=== PATIENT | female | born 1980 | race Two or more races ===

== ENCOUNTER → 2021-04-12 10:27 | Outpatient (BNVA) | payer OTHER, SELFPAY | PROVIDERS: PCP Family Medicine; Referring Provider Family Medicine; Visit Provider Physician Assistant ==

== ENCOUNTER → 2021-05-05 15:30 | Outpatient (BNVA) | payer OTHER, SELFPAY | PROVIDERS: PCP Family Medicine; Visit Provider Physician Assistant Surgical ==

== ENCOUNTER 2021-05-05 16:35 | Outpatient (REF) | payer OTHER, SELFPAY ==
[2021-05-11 15:22] LABS: H Pylori Breath Test Negative (Negative)
== END 2021-05-05 16:36 | disposition home or self-care (01) ==
LOC: HO.LNP 16:35
PROVIDERS: Visit Provider Physician Assistant
DX: Z01.818 Encounter for other preprocedural examination (principal); E66.01 Morbid (severe) obesity due to excess calories; I49.9 Cardiac arrhythmia, unspecified; R40.0 Somnolence
CPT/HCPCS: 83013

== ENCOUNTER → 2021-05-07 07:03 | Outpatient (BNVA) | payer OTHER, SELFPAY | PROVIDERS: PCP Family Medicine; Visit Provider Surgery ==

== ENCOUNTER → 2021-05-21 08:14 | Outpatient (BNVA) | payer OTHER, SELFPAY | PROVIDERS: PCP Family Medicine; Visit Provider Dietitian, Registered | DX: E66.01 Morbid (severe) obesity due to excess calories (principal) | CPT/HCPCS: 97802 ==

== ENCOUNTER 2021-06-08 07:56 | Outpatient (REF) | payer OTHER, SELFPAY ==
--- NOTE | ~2021-06-08 | US_ITS ---
EXAMINATION: US COMPLETE ABDOMEN WITH LIVER ELASTOGRAPHY CLINICAL INFORMATION: Obesity. COMPARISON: None. TECHNIQUE: Real-time imaging of the abdominal viscera. Noninvasive ultrasound liver fibrosis assessment is performed using Alexi ElastPQ point quantification shear wave elastography (2D-SWE) with a C5-2 MHz transducer. Multiple elastography samples are obtained. FINDINGS: PANCREAS: Most of the pancreas obscured by overlying gas. ABDOMINAL AORTA: The proximal, middle, and distal aortic segments are normal in caliber. INFERIOR VENA CAVA: Visualized portions are normal. LIVER: The liver demonstrates normal size, contour and increased echogenicity. No focal lesion or intrahepatic biliary duct dilatation. The right lobe measures 16.7 cm in length. The left lobe measures 12.5 cm in length. Portal flow is hepatopedal. Shear wave liver elastography median stiffness is 1.36 m/s (reference: normal median stiffness is 1.3 m/s or less). IQR/median stiffness to assess sampling precision is 0.07 (reference: good quality data set is IQR/median stiffness of 0.15 or less). GALLBLADDER: Normal. The gallbladder is physiologically distended without evidence of stones, sludge, polyps, wall thickening or pericholecystic fluid. COMMON BILE DUCT: Normal in caliber measuring 0.4 cm in diameter. RIGHT KIDNEY: Normal. No hydronephrosis. No renal calculi or focal parenchymal lesions. The kidney measures 13.2 cm in maximum dimension. LEFT KIDNEY: There is an extrarenal kidney pelvis. No hydronephrosis. No renal calculi or focal parenchymal lesions. The kidney measures 13.4 cm in maximum dimension. SPLEEN: Normal. The spleen measures 9.9 cm in maximum dimension. FREE FLUID: None. US/US abdomen comp w elastography IMPRESSION: 1. Diffuse hepatic steatosis without focal lesion. The rest of the abdominal ultrasound is unremarkable except for an extrarenal left renal pelvis. 2. Liver elastography: Median liver stiffness measures 1.36 cm corresponding to cACLD (ruled out). REFERENCE: Society of Radiologists in Ultrasound Liver Stiffness Thresholds (2019): LIVER STIFFNESS THRESHOLDS: *Liver Stiffness equal or less than 1.3 m/s: High probability of being normal. *Liver Stiffness less than 1.7 m/s: In the absence of other known clinical signs, rules out compensated advanced chronic liver disease. *Liver Stiffness 1.7-2.1 m/s: Suggestive of compensated advanced chronic liver disease but need further test for confirmation. *Liver Stiffness over 2.1 m/s: Rules in compensated advanced chronic liver disease. *Liver Stiffness over 2.4 m/s: Suggestive of clinically significant portal hypertension. QUALITY OF DATA SET: *IQR/Median value equal or less than 0.15 implies a quality data set. *IQR/Median value over 0.15 implies a poor quality data set. SIGNIFICANT CHANGE FROM PRIOR EXAM: Significant change if liver stiffness measurement is 10% or greater from prior exam. OTHER CONSIDERATIONS: The stage of liver fibrosis may be overestimated in the setting of acute hepatitis, liver inflammation, elevated liver function tests, hepatic vascular congestion, obstructive cholestasis, non-fasting state, and infiltrative diseases such as amyloidosis and lymphoma. In some patients with NAFLD, the liver stiffness thresholds for compensated advanced chronic liver disease may be lower. In causes other than viral hepatitis and NAFLD, liver stiffness thresholds are not well established.
--- NOTE | ~2021-06-08 | XR_ITS ---
EXAMINATION: XR CHEST CLINICAL INFORMATION: I49.9 - Cardiac arrhythmia, unspecified COMPARISON: None TECHNIQUE: 2 views of the chest were obtained. FINDINGS: Heart size normal. Vascularity normal. Lungs are clear. No vascular congestion, infiltrate, groundglass opacity, or effusion. The costophrenic sulci are well-defined. The hilar and mediastinal contours and visualized bony structures are unremarkable. XR/XR chest 2V IMPRESSION: Unremarkable examination.
--- NOTE | ~2021-06-08 | FL_ITS ---
EXAMINATION: XR FLUOROSCOPY UPPER GI WITH AIR CLINICAL INFORMATION: Cardiac arrhythmia. COMPARISON: None. TECHNIQUE: Routine upper GI air-contrast study was performed. FINDINGS: Following oral administration of thick barium and effervescent granules, there is normal propagation of bolus from the oral cavity through the pharynx and esophagus abd into the stomach without any evidence of obstruction, narrowing or stricture. On placing patient supine and prone lying, the course, caliber and peristalsis of stomach, duodenal bulb and the sweep are normal. The mucosal pattern of the stomach and the duodenum is normal. FLUOROSCOPY TIME: 1.8 minutes DOSE AREA PRODUCT: 33.079 Gy-cm2 . FL/FL upper GI w air IMPRESSION: Unremarkable upper GI air contrast study.
--- NOTE | 2021-06-08 09:09 | ECG_ITS ---
Test Reason : cardiac arrhythmia Blood Pressure : / mmHG Vent. Rate : 054 BPM Atrial Rate : 054 BPM P-R Int : 194 ms QRS Dur : 090 ms QT Int : 484 ms P-R-T Axes : 042 008 030 degrees QTc Int : 458 ms Sinus bradycardia Nonspecific T wave abnormality Abnormal ECG No previous ECGs available Referred By: Colette Leon Electronically Signed By:RUSTAM GARCIA
--- NOTE | 2021-06-08 09:09 | CA_ITS ---
Transthoracic Echocardiogram Patient (Last, First, Middle): Lizette Green, Gender: Female Date of : 1980 Age: 40 Procedure Date: 06/08/2021 Procedure Type: Transthoracic Echocardiogram Location: OP Height: 170.18 cm Weight: 134.27 kg BSA: 2.39 m2 Heart Rate: bpm BP: 142 / 92 mmHg Associate Dean: ADELINA Referring MD: Colette Leon PA-C Symptoms: I49.9 - Cardiac arrhythmia, unspecified Study Quality: Fair ECG Rhythm: Sinus Conclusions: - The left ventricular systolic function is low normal. The visually estimated ejection fraction is between 50-55%. - There is moderately increased left ventricular wall thickness. - No obvious valvular pathology seen on this study. Findings Left Ventricle Normal left ventricular cavity size. There is moderately increased left ventricular wall thickness. The left ventricular systolic function is low normal. The visually estimated ejection fraction is between 50-55%. There is no evidence of regional wall motion abnormalities. Diastolic function is normal for age. Right Ventricle Normal right ventricular cavity size and systolic function. Atria Both atria are normal in size. Aortic Valve There is a normal trileaflet aortic valve. There is no aortic valve stenosis. There is no aortic valve regurgitation. Mitral Valve The mitral valve appears normal. There is trace mitral valve regurgitation. There is no mitral valve stenosis. Pulmonic Valve The pulmonic valve was not well visualized. Tricuspid Valve Normal tricuspid valve structure. There is trace tricuspid valve regurgitation. The pulmonary artery systolic pressure is normal. Great Vessels The asc aorta and aortic arch are normal in size. Venous The inferior vena cava was not well visualized. Pericardium/Pleural There is no evidence of pericardial effusion. Prior Study Comparison No prior study available for comparison. Recommendations, Care & Conclusions No obvious valvular pathology seen on this study. Measurements M-Mode Liner Measurements Normals - Women/Men IVSd: 1.75 0.6-0.9/0.6-1.0 cm LVIDd: 5.30 3.9-5.3/4.2-5.9 cm LVIDd Index: 2.22 1.9-3.2 cm/m2 LVPWd: 1.34 0.6-0.9/0.6-1.0 cm LV Mass: 459.38 67-162/88-224g LV Mass Index: 192.21 43-95/49-115 g/m2 M-Mode Volumes LV EDV: 135.00 2D Linear Measurements IVSd: 1.29 0.6-0.9/0.6-1.0 cm LVIDd: 5.48 3.9-5.3/4.2-5.9 cm LVIDd Index: 2.29 2.4-3.2/2.2-3.1 cm/m2 LVIDs: 3.70 2.0-3.6 cm LVPWd: 1.17 0.7-1.1 cm Ao Root: 2.90 2.1-3.5 cm LA Diam: 4.00 2.7-3.8/3.0-4.0 cm LAIDs Index: 1.67 1.5-2.3 cm/m2 LV Mass: 349.44 67-162/88-224 g LV Mass Index: 146.21 43-95/49-115 g/m2 LVOT Diam: 2.00 3.0+(-)1.3 cm 2D Systolic Function EF 4C: 55.60 >55% EF 2C: 45.10 >55% EF BiP: 50.20 >55% Mitral Valve MV Pk E: 0.67 MV PK A: 0.66 MV Decel Time: 273.00 E/A: 1.00 E'Lateral: 7.07 E'Medial: 6.31 E/E' Med: 10.60 E/E' Lat: 9.40 PHT: 80.00 MVA PHT: 2.75 Decel [place]: 2.45 Aortic Valve AoV Pk Scott: 1.44 AoV Pk Grad: 8.00 LVOT LVOT Pk Scott: 0.98 LVOT Mn Scott: 0.63 LVOT VTI: 0.24 LVOT Pk Grad: 4.00 LVOT Mn Grad: 2.00 LVOT Diam: 2.00 LVOT Area: 3.14 Diastolic Function MV Pk E: 0.67 MV Pk A: 0.66 E/A: 1.00 E'Medial: 6.31 E/E' Med: 10.60 E' Laterial: 7.07 E/E' Lat: 9.40 Right Ventricle TAPSE (mm): 2.34 TVS' Scott: 12.90 Tricuspid Valve TR Pk Scott: 2.76 TR Pk Grad: 30.00 RA Press: 3.00 RVSP: 33.00 Great Vessels Aorta Ao Root-2D: 2.90 2.0-3.7 cm Ao Asc: 3.50 2.1-3.4 cm Updated in Other Vendor System with Status of Final Harshad Ruano MD electronically signed on 06/08/2021 11:22:03 AM with status of Final
[2021-06-08 10:49] LABS: MANUAL DIFF FLAG NO
[2021-06-08 11:23] LABS: Basophils Percent Auto 0.9 % (0-2); Eosinophils Absolute Auto 0.2 X10*3/uL (0.0-0.4); Eosinophils Percent Auto 5.2 % (0-4); Hematocrit 43.3 % (37.0-47.0); Hemoglobin 13.7 g/dl (12.0-16.0); Lymphocytes Absolute Auto 2.5 X10*3/uL (1.2-4.9); Lymphocytes Percent Auto 54.1 % (20-40); Mean Corpuscular HGB Conc 31.6 g/dl (31.0-35.0); Mean Corpuscular Hemoglobin 26.7 pg (27.0-33.0); Mean Corpuscular Volume 84.4 fL (80.0-98.0); Mean Platelet Volume 11.9 fL (9.4-12.3); Monocytes Absolute Auto 0.3 X10*3/uL (0.1-1.2); Monocytes Percent Auto 6.1 % (2-11); Neutrophils Absolute Auto 1.6 x10*3/uL (2.0-8.3); Neutrophils Percent Auto 33.7 % (45-73); Platelet Count 220 X10*3/uL (160-400); Red Blood Count 5.13 X10*6/uL (4.20-5.50); Red Cell Distribution Width 13.3 % (11.0-16.0); White Blood Count 4.6 X10*3/uL (4.8-10.8)
[2021-06-08 11:32] LABS: Estimated Average Glucose 126 mg/dL; Hemoglobin A1C 149.9644 umol/L
[2021-06-08 12:38] LABS: Ferritin 183 ng/mL (10-250); TSH reflex Free T4 0.93 uIU/mL (0.32-4.0); Vitamin D 25-OH Total 23.9 ng/mL (>30)
[2021-06-08 12:41] LABS: Folate 6.9 ng/mL (> or = 4.0); Vitamin B12 927 pg/mL (200-900)
[2021-06-08 12:50] LABS: Alanine Aminotransferase 42 U/L (0-31); Albumin Level 4.1 g/dL (3.5-5.0); Alkaline Phosphatase 72 U/L (39-117); Anion Gap 15 (12-20); Aspartate Amino Transferase 25 U/L (5-31); Bilirubin Total 0.5 mg/dL (0.0-1.0); Blood Urea Nitrogen 15 mg/dL (9-16); C Reactive Protein 0.43 mg/dL (< or = 0.50); Calcium 9.4 mg/dL (8.4-10.2); Carbon Dioxide 26 mmol/L (22-29); Chloride 104 mmol/L (96-108); Cholesterol 211 mg/dL; Estimated Glomerular Filt Rate > 60; Glucose Random 89 mg/dL (60-115); HDL Cholesterol 35 mg/dL; Iron 67 mcg/dL (30-160); LDL Cholesterol Calculated 156 mg/dl; Percent Iron Saturation 21 % (15-50); Potassium 3.8 mmol/L (3.3-5.1); Sodium 141 mmol/L (135-145); Total Iron Binding Capacity 326 mcg/dL (228-428); Total Protein 7.4 g/dL (6.5-8.0); Triglycerides 103 mg/dL; Unsaturated Iron Binding 259 ug/dL
[2021-06-08 14:28] LABS: Insulin 19 uU/mL (2-29)
[2021-06-09 13:01] LABS: Calcium (PTHI) 9.3 mg/dL (8.6-10.2); PTHI 45 pg/mL (14-64)
[2021-06-11 06:27] LABS: Zinc 102 mcg/dL (60-130)
[2021-06-11 13:00] LABS: Vitamin B1 9 nmol/L (8-30)
[2021-06-12 15:57] LABS: Vitamin A 37 mcg/dL (38-98)
== END 2021-06-08 07:57 | disposition home or self-care (01) ==
LOC: HO.US 07:56
PROVIDERS: Visit Provider Physician Assistant
DX: Z01.818 Encounter for other preprocedural examination (principal); I49.9 Cardiac arrhythmia, unspecified; R40.0 Somnolence; E66.01 Morbid (severe) obesity due to excess calories
CPT/HCPCS: 36415; 71046; 74246; 76705; 76981; 80053; 80061; 82306; 82607; 82728; 82746; 83036; 83525; 83540; 83970; 84425; 84443; 84590; 84630; 85025; 86140; 93005; 93306; 97803

== ENCOUNTER → 2021-07-21 08:01 | Outpatient (REF) | payer MEDICAID, SELFPAY ==
--- NOTE | 2021-07-21 08:03 | CA_ITS ---
Acquisition Time: 2021-07-21 08:15:58 Total Exercise Time: 00:05:50 Test Indications: ABN EKG, PREOP Medications: SEE CHART Protocol: JANETT Max HR: 129 BPM 71% of Pred: 180 BPM Max BP: 164/090 mmHG Max Work Load: 7.0 METS Exercise stress test with exercise 5 min 50 sec of Janett protocol, achieving 70% MPHR, 7 METS, with moderate shortness of breath and request to stop, no chest discomfort, without arrythmia, with normotensive response to exercise, with nondiagnostic EKG for ischemia due to suboptimal heart rate. In recovery her breathing quickly improved. Test reviewed with Dr Heard. Msg sent to Dr Birmingham with report and recommendation for pharm nuclear stress test. Referred By: Kelton Huddleston Overread By: SHAQUILLE GILLESPIE
== END ==
LOC: HO.CARD 08:01
PROVIDERS: Visit Provider Surgery
DX: I51.7 Cardiomegaly (principal); R94.31 Abnormal electrocardiogram [ECG] [EKG]
CPT/HCPCS: 93017

== ENCOUNTER → 2021-08-06 08:16 | Outpatient (BNVA) | payer OTHER, SELFPAY | PROVIDERS: PCP Family Medicine; Visit Provider Surgery | DX: Z13.89 Encounter for screening for other disorder (principal) ==

== ENCOUNTER → 2021-09-07 15:43 | Outpatient (BNVA) | payer OTHER, SELFPAY | PROVIDERS: PCP Family Medicine; Visit Provider Surgery | DX: Z13.89 Encounter for screening for other disorder (principal) ==

== ENCOUNTER → 2021-09-10 09:55 | Outpatient (REF) | payer OTHER, SELFPAY ==
--- NOTE | ~2021-09-10 | NM_ITS ---
Lexiscan Myocardial perfusion study Indication: Preoperative cardiac evaluation, assess for coronary disease and ischemia Technique: The patient was brought in for a Lexiscan perfusion study on 09/10/2021 and was injected 0.4 mg of Lexiscan intravenously. Within a minute of this injection 40 mCi of sestamibi was given intravenously. Images were obtained using the SPECT gamma camera interlaced with the gating device. Images were obtained in supine position. Resting perfusion study was performed on 09/14/2021. Patient was administered 40 mCi of sestamibi intravenously at rest. Images were then obtained in supine position. Total DLP 158mGy-cm. Images were processed with the software and compared side to side in short axis, horizontal long axis and vertical long axis views. Findings: Raw acquisition was reviewed. The stress perfusion study showed mildly diminished tracer uptake in the basal part of inferolateral wall; distal part of anterior septum. With CT attenuation correction, basal inferolateral wall perfusion improved. Distal anteroseptal wall still with some perfusion defect. The gated study shows low normal LV systolic function with calculated LVEF of 53%. LV cavity is normal in size. The gated study shows normal wall thickening and contraction of segments. Resting study shows no significant perfusion abnormality. With CT attenuation correction, there is diminished tracer uptake in the distal anteroseptal wall. Gating at rest reveals normal wall motion with ejection fraction at 52%. The findings are consistent with no definitive reversible or fixed perfusion defects to suggest ischemia or infarction. NM/NM lucas perf SPECT rest & str Impression: 1. Myocardial perfusion imaging study shows no definitive evidence of any ischemia or infarction. Likely normal myocardial perfusion. 2. Gated LVEF is 53% during stress and 52% during rest. 3. Transient ischemic dilatation not present. EKG component of the test reported separately.
--- NOTE | 2021-09-10 09:59 | CA_ITS ---
Acquisition Time: 2021-09-10 10:18:56 Total Exercise Time: 00:02:00 Test Indications: ABN EKG Medications: SEE CHART Protocol: LEXISCAN Max HR: 101 BPM 56% of Pred: 180 BPM Max BP: 152/092 mmHG Max Work Load: 1.6 METS Pharmacological stress test with Lexiscan injection, while walking slow on treadmill without anginal symptoms, without arrythmia, with normotensive response to injection, with nondiagnostic EKG for ischemia. Nuclear images pending. Test reviewed with Dr Tellez Referred By: Kelton Huddleston Overread By: SHAQUILLE GILLESPIE
== END ==
LOC: HO.CARD 09:55
PROVIDERS: Visit Provider Surgery
DX: R94.31 Abnormal electrocardiogram [ECG] [EKG] (principal); I51.7 Cardiomegaly; R94.39 Abnormal result of other cardiovascular function study
CPT/HCPCS: 78452; 93017; A9500; J0280; J2785

== ENCOUNTER 2021-09-15 06:08 | Inpatient (IN) | payer OTHER, SELFPAY ==
[2021-09-08 11:54] VITALS: BMI 44.6
[2021-09-11 11:01] LABS: MANUAL DIFF FLAG NO
[2021-09-11 11:15] LABS: Basophils Percent Auto 0.5 % (0-2); Eosinophils Absolute Auto 0.3 X10*3/uL (0.0-0.4); Eosinophils Percent Auto 4.8 % (0-4); Hematocrit 41.1 % (37.0-47.0); Hemoglobin 13.1 g/dl (12.0-16.0); Imm Gran Abs Auto 0.01 X10*3/uL (0.00-0.03); Imm Gran Pct Auto 0.2 % (0.0-0.4); Lymphocytes Absolute Auto 3.1 X10*3/uL (1.2-4.9); Lymphocytes Percent Auto 50.8 % (20-40); Mean Corpuscular HGB Conc 31.9 g/dl (31.0-35.0); Mean Corpuscular Hemoglobin 26.4 pg (27.0-33.0); Mean Corpuscular Volume 82.9 fL (80.0-98.0); Mean Platelet Volume 10.7 fL (9.4-12.3); Monocytes Absolute Auto 0.3 X10*3/uL (0.1-1.2); Monocytes Percent Auto 5.3 % (2-11); Neutrophils Absolute Auto 2.3 x10*3/uL (2.0-8.3); Neutrophils Percent Auto 38.4 % (45-73); Platelet Count 279 X10*3/uL (160-400); Red Blood Count 4.96 X10*6/uL (4.20-5.50); Red Cell Distribution Width 13.5 % (11.0-16.0)
[2021-09-11 11:19] LABS: INTERNATIONAL NORM RATIO 1.1 (0.9-1.1); Prothrombin Time 12.7 SEC (9.9-13.0)
[2021-09-11 11:21] LABS: Partial Thromboplastin Time 36.6 SEC (24.1-38.0)
[2021-09-11 11:24] LABS: Estimated Average Glucose 114 mg/dL; Hemoglobin A1c % 5.6 %
[2021-09-11 11:41] LABS: Alanine Aminotransferase 28 U/L (0-31); Alkaline Phosphatase 76 U/L (39-117); Anion Gap 12 (12-20); Aspartate Amino Transferase 18 U/L (5-31); Bilirubin Total 0.6 mg/dL (0.0-1.0); Blood Urea Nitrogen 13 mg/dL (9-16); C Reactive Protein 0.87 mg/dL (< or = 0.50); Calcium 9.7 mg/dL (8.4-10.2); Carbon Dioxide 29 mmol/L (22-29); Chloride 107 mmol/L (96-108); Cholesterol 216 mg/dL; Creatinine Clr Calc Pharmacy 130.9; Estimated Glomerular Filt Rate > 60; Glucose Random 97 mg/dL (60-115); HDL Cholesterol 31 mg/dL; LDL Cholesterol Calculated 172 mg/dl; Potassium 3.9 mmol/L (3.3-5.1); Sodium 144 mmol/L (135-145); Total Protein 7.3 g/dL (6.5-8.0); Triglycerides 68 mg/dL
[2021-09-11 12:04] LABS: Insulin 14 uU/mL (2-29); TSH reflex Free T4 0.78 uIU/mL (0.32-4.0)
--- NOTE | 2021-09-11 23:22 | MHC.SHP ---
Pre-Procedural Eval Section A Date of Service: 09/11/21 The patient is an INPATIENT: Yes The History & Physical has been completed within 30 days and I have reviewed it.: Yes Section B Chief Complaint: obesity Relevant Family History (Specify if Yes): No Relevant Social History: None Present Medications: None History of Previous Operations: No relevant previous surgery Allergies: Allergies Allergy/AdvReac Type Severity Reaction Status Date / Time No Known Allergies Allergy Verified 09/08/21 11:54 Review of Systems Sugical H&P ROS: Negative: Constitution, Cardiovascular, Respiratory, Neurological, Psychiatric, Hem-Onc, Allergic/Immunologic, Gastrointestinal, Genitourinary, Musculoskeletal, Integumentary, Endocrine and Eyes/Ears/Nose/Throat Exam Surgical H&P Exam: Normal: HEENT, Normal: Heart, Normal: Lungs, Normal: Extremities, Normal: Abdomen, Normal: Skin and Normal: Neurological Plan Diagnosis/Plan: Unchanged I have reviewed the history and physical and performed a pertinent physical examination on my patient. No changes have occurred unless specified.
--- NOTE | 2021-09-14 08:58 | P.CONAN_ITS ---
Documented by User: India Velasquez NP 09/14/21 15:48 HPI - Anesthesia Eval Consult details Narrative: 40yo F for Gastrectomy Sleeve,EGD,poss diaphragmatic hernia,poss ventral hernia,poss open, PMFSH Active Problems Active Problems: All Active Problems (Updated 09/08/21 @ 11:52 by Chhaya Wise, RN) Morbid obesity (Acute) Irregular heart beat (Acute) Daytime somnolence (Acute) Pre-op evaluation (Acute) Binge-eating disorder, in partial remission, moderate (Acute) Abnormal EKG (Acute) LVH (left ventricular hypertrophy) (Acute) Equivocal stress test (Acute) Vitamin D deficiency (Acute) Vitamin A deficiency (Acute) Back pain (Acute) Past Medical History Medical History (Updated 09/08/21 @ 11:52 by Chhaya Wise RN) Back pain History of epidural anesthesia Migraines ANDREA (obstructive sleep apnea) Seasonal allergies Family History Family History Mother Anemia Father No problems noted. Daughter Asthma Daughter No problems noted. Surgical History Surgical History History of wisdom tooth extraction Social History Social History Are you a primary client care consultant to a significant other at home: No Do you presently have visiting nurse or other home services: No Alcohol intake: current Alcohol intake frequency: does not drink Patient Tobacco Use Status: Former Tobacco user Quit Date: 2007 Tobacco use type: Cigarette Years Smoked: last 2007 Use of substances other than those prescribed or required for medical reasons: No Have you been hit, kicked, punched, or otherwise hurt by someone within the past year? If so, by whom?: No Are you DNR?: No Advance Directives: No Advance Directives Information Provided: Yes Advance Directives on File: No Recently lost weight without trying: No Patient : No FDLMP: 08/2020 : No Poor oral hygiene: No Meds Allergies Allergy/AdvReac Type Severity Reaction Status Date / Time avocado Allergy Vomiting Verified 09/15/21 06:28 pineapple Allergy Itching Verified 09/15/21 06:28 Home Medications Medication Instructions Recorded Confirmed Last Taken Type ascorbate calcium (vitamin C) 500 500 mg PO DAILY 04/12/21 09/08/21 Unknown History mg tablet ibuprofen 200 mg tablet (Motrin IB) 200 mg PO Q6H PRN 04/12/21 09/08/21 Unknown History Exam Exam Date and Time: September 14, 2021 0858 Height,Weight and Vital Signs: Height 5 ft 6.5 in Weight 127.278 kg Pertinent Lab Results Pertinent Lab Results: Laboratory Tests 09/11/21 09/11/21 09/11/21 10:56 10:58 10:58 WBC 6.0 RBC 4.96 Hgb 13.1 Hct 41.1 MCV 82.9 MCH 26.4 L MCHC 31.9 RDW 13.5 Plt Count 279 D MPV 10.7 Immature Gran % (Auto) 0.2 Neut % (Auto) 38.4 L Lymph % (Auto) 50.8 H [place] % (Auto) 5.3 Eos % (Auto) 4.8 H Baso % (Auto) 0.5 Lymph # (Auto) 3.1 [place] # (Auto) 0.3 Eos # (Auto) 0.3 Baso # (Auto) 0.0 Abs Immat Gran (auto) 0.01 Absolute Neuts (auto) 2.3 Absolute Nucleated RBC 0.000 Nucleated RBC % (auto) 0.0 PT 12.7 INR 1.1 APTT 36.6 Sodium Potassium Chloride Carbon Dioxide Anion Gap BUN Creatinine Estim Creat Clear Calc Estimated GFR Random Glucose Estimat Average Glucose Hemoglobin A1c % Insulin Level Calcium Total Bilirubin AST ALT Alkaline Phosphatase C-Reactive Protein Total Protein Albumin Triglycerides Cholesterol LDL Cholesterol, Calc HDL Cholesterol TSH Blood Type O Positive Antibody Screen NEGATIVE 09/11/21 09/11/21 10:58 10:58 WBC RBC Hgb Hct MCV MCH MCHC RDW Plt Count MPV Immature Gran % (Auto) Neut % (Auto) Lymph % (Auto) [place] % (Auto) Eos % (Auto) Baso % (Auto) Lymph # (Auto) [place] # (Auto) Eos # (Auto) Baso # (Auto) Abs Immat Gran (auto) Absolute Neuts (auto) Absolute Nucleated RBC Nucleated RBC % (auto) PT INR APTT Sodium 144 Potassium 3.9 Chloride 107 Carbon Dioxide 29 Anion Gap 12 BUN 13 Creatinine 0.78 Estim Creat Clear Calc 130.9 Estimated GFR > 60 Random Glucose 97 Estimat Average Glucose 114 Hemoglobin A1c % 5.6 Insulin Level 14 Calcium 9.7 Total Bilirubin 0.6 AST 18 ALT 28 Alkaline Phosphatase 76 C-Reactive Protein 0.87 H Total Protein 7.3 Albumin 4.0 Triglycerides 68 Cholesterol 216 LDL Cholesterol, Calc 172 HDL Cholesterol 31 TSH 0.78 Blood Type Antibody Screen Narrative Narrative: EKG 05/2021 Vent. Rate : 054 BPM ? ? Atrial Rate : 054 BPM ?? P-R Int : 194 ms? QRS Dur : 090 ms ? ? QT Int : 484 ms ? ? ? P-R-T Axes : 042 008 030 degrees ?? QTc Int : 458 ms ? Sinus bradycardia Nonspecific T wave abnormality Abnormal ECG No previous ECGs available ECHO 05/2021 Conclusions: - The left ventricular systolic function is low normal.? The ? ? visually estimated ejection fraction is between 50-55%.? - There is moderately increased left ventricular wall thickness. - No obvious valvular pathology seen on this study.? ?? NM lucas perf SPECT rest & str 08/2021 Impression: ? 1.? Myocardial perfusion imaging study shows no definitive evidence of any ischemia or infarction. Likely normal myocardial perfusion. 2.? Gated LVEF is 53% during stress and 52% during rest. 3. Transient ischemic dilatation not present. ? EKG component of the test reported separately. (nondiagnostic) Assessment and Plan Assessment Anesthesia Assessment: Chart Reviewed Documented by User: Josefina Payan MD 09/15/21 07:46 [facility] Past Medical History Medical History (Updated 09/08/21 @ 11:52 by Chhaya Wise RN) Back pain History of epidural anesthesia Migraines ANDREA (obstructive sleep apnea) Seasonal allergies Family History Family History Mother Anemia Father No problems noted. Daughter Asthma Daughter No problems noted. Family history of problems with anesthesia: No Surgical History Surgical History History of wisdom tooth extraction History of Problems with Anesthesia: No Social History Social History Are you a primary client care consultant to a significant other at home: No Do you presently have visiting nurse or other home services: No Alcohol intake: current Alcohol intake frequency: does not drink Patient Tobacco Use Status: Former Tobacco user Quit Date: 2007 Tobacco use type: Cigarette Years Smoked: last 2007 Use of substances other than those prescribed or required for medical reasons: No Have you been hit, kicked, punched, or otherwise hurt by someone within the past year? If so, by whom?: No Are you DNR?: No Advance Directives: No Advance Directives Information Provided: Yes Advance Directives on File: No Recently lost weight without trying: No Patient : No FDLMP: 08/2020 : No Poor oral hygiene: No Meds Allergies Allergy/AdvReac Type Severity Reaction Status Date / Time avocado Allergy Vomiting Verified 09/15/21 06:28 pineapple Allergy Itching Verified 09/15/21 06:28 Home Medications Medication Instructions Recorded Confirmed Last Taken Type ascorbate calcium (vitamin C) 500 500 mg PO DAILY 04/12/21 09/08/21 Unknown History mg tablet ibuprofen 200 mg tablet (Motrin IB) 200 mg PO Q6H PRN 04/12/21 09/08/21 Unknown History Exam Height,Weight and Vital Signs: Height 5 ft 6.5 in Weight 127.278 kg Vital Signs Temp Pulse Resp BP Pulse Ox 09/15/21 06:28 97.0 F 63 16 127/65 97 Pertinent Lab Results Pertinent Lab Results: Laboratory Tests 09/11/21 09/11/21 09/11/21 10:56 10:58 10:58 WBC 6.0 RBC 4.96 Hgb 13.1 Hct 41.1 MCV 82.9 MCH 26.4 L MCHC 31.9 RDW 13.5 Plt Count 279 D MPV 10.7 Immature Gran % (Auto) 0.2 Neut % (Auto) 38.4 L Lymph % (Auto) 50.8 H [place] % (Auto) 5.3 Eos % (Auto) 4.8 H Baso % (Auto) 0.5 Lymph # (Auto) 3.1 [place] # (Auto) 0.3 Eos # (Auto) 0.3 Baso # (Auto) 0.0 Abs Immat Gran (auto) 0.01 Absolute Neuts (auto) 2.3 Absolute Nucleated RBC 0.000 Nucleated RBC % (auto) 0.0 PT 12.7 INR 1.1 APTT 36.6 Sodium Potassium Chloride Carbon Dioxide Anion Gap BUN Creatinine Estim Creat Clear Calc Estimated GFR Random Glucose Estimat Average Glucose Hemoglobin A1c % Insulin Level Calcium Total Bilirubin AST ALT Alkaline Phosphatase C-Reactive Protein Total Protein Albumin Triglycerides Cholesterol LDL Cholesterol, Calc HDL Cholesterol TSH Blood Type O Positive Antibody Screen NEGATIVE 09/11/21 09/11/21 10:58 10:58 WBC RBC Hgb Hct MCV MCH MCHC RDW Plt Count MPV Immature Gran % (Auto) Neut % (Auto) Lymph % (Auto) [place] % (Auto) Eos % (Auto) Baso % (Auto) Lymph # (Auto) [place] # (Auto) Eos # (Auto) Baso # (Auto) Abs Immat Gran (auto) Absolute Neuts (auto) Absolute Nucleated RBC Nucleated RBC % (auto) PT INR APTT Sodium 144 Potassium 3.9 Chloride 107 Carbon Dioxide 29 Anion Gap 12 BUN 13 Creatinine 0.78 Estim Creat Clear Calc 130.9 Estimated GFR > 60 Random Glucose 97 Estimat Average Glucose 114 Hemoglobin A1c % 5.6 Insulin Level 14 Calcium 9.7 Total Bilirubin 0.6 AST 18 ALT 28 Alkaline Phosphatase 76 C-Reactive Protein 0.87 H Total Protein 7.3 Albumin 4.0 Triglycerides 68 Cholesterol 216 LDL Cholesterol, Calc 172 HDL Cholesterol 31 TSH 0.78 Blood Type Antibody Screen Laboratory Results - last 24 hr 09/14/21 09/15/21 14:35 06:15 Urine Test NEGATIVE COVID-19 ([place]) Negative COVID-19 Clin Com See Note Airway Mallampati Class: III TM Dist: >3cm Neck ROM: Full Loose/Missing/Broken Teeth: Yes ([place] teeth) Heart: RRR ? extra beats Lungs: CTAB Assessment and Plan Assessment Anesthesia Assessment: Anesthesia Plan Discussed Final Anesthetic Review Family History of Problems with Anesthesia: No History of Problems with Anesthesia: No NPO: Yes ASA Class: III Final Preanesthetic Review: No Changes in Pt Med Stat, Meds/Allgs Chart Reviewed, Consent Obtained/Reviewed and Anes Risks/Benef Reviewed Patient Risk: Intermediate Procedure Risk: Intermediate Assessment/Block/Sedation in SS: Assess/Block/Sedation-SS Anesthetic Plan Anesthetic Plan: GA Disposition: Standard PACU and Inp. Admit - Standard Bed
[2021-09-14 15:07] LABS: COVID-19 Test Negative (Negative)
[2021-09-15] VITALS (14 sets, daily range): BP systolic 121–156; BP diastolic 65–98; PULSE 63–89; RESP 16–22; TEMP 36.1–36.9; O2SAT 96–100
[2021-09-15 06:35] LABS: UPreg QC Valid YES; Urine Pregnancy NEGATIVE (NEGATIVE)
[2021-09-15] MEDS: Lactated Ringers 1,000 ML 999 ML IV (06:42)
[2021-09-15] MEDS: Lactated Ringers 1,000 ML 100 ML IVCONT (06:52)
--- NOTE | 2021-09-15 06:52 | PHA.MEDREC ---
Pharmacy Consult ? Medication Reconciliation Pharmacy has reviewed the medication reconciliation completed by nursing. Dede Gibson, JessicaD
[2021-09-15] MEDS: ceFAZolin Sodium/Dextrose,Iso 2 GM/50 ML PIGGYBACK IV ×2 (07:58→13:38)
--- NOTE | 2021-09-15 10:56 | P.DS_ITS ---
DS: Providers Provider Date of Service: 09/16/21 Date of admission: 09/15/21 06:08 Primary care physician: Unknown Physician DS: Summary Hospital Course Hospital Course: ADMITTING DIAGNOSIS: morbid obesity, Left ventricular hypertrophy DISCHARGE DIAGNOSIS: same, s/p laparoscopic sleeve gastrectomy PAST SURGICAL HISTORY: none PROCEDURE: upper endoscopy, laparoscopic sleeve gastrectomy DISCHARGE SUMMARY: History of Present Illness: The patient is a 40 year-old woman with a BMI of 47.5 kg/m2 and associated co- morbidities as described above. The patient had extensive work-up,lost 31 lbs preoperatively and was electively scheduled for laparoscopic, possible open sleeve gastrectomy and gastropexy. Risks and complications of the surgery were discussed with the patient in advance, particularly the possibility of , pulmonary embolism, anastomotic leak, bleeding, bowel injury, GERD, cardiac, renal or pulmonary complications. The patient understood all the risks and was in agreement with the surgical plan. Hospital Course: The patient underwent an uneventful laparoscopic sleeve gastrectomy with gastropexy on the day of admission. Postoperatively, the patient was transferred to the surgical floor. The patient received IV Acetaminophen and IV dilaudid for pain control. Patient was started on bariatric phase 1 diet POD #0. On postoperative day one, the patient was feeling well without nausea, vomiting, fevers, or tachycardia. The patient had some mild incisional pain and the abdomen was soft. On the morning of postoperative day one, the patient was continued on 1 ounce of water or ice every half hour. During the day, the patient did fairly well, having some incisional pain, but able to ambulate adequately and to tolerate liquids well. Since the patient is doing well, we decided that the patient was ready to be discharged. The patient was given instructions to follow-up with me next week and to call my office for any fever over 101, persistent abdominal pain, nausea, vomiting, GERD, symptoms of DVT such as calf tenderness, or leg swelling, or pulmonary embolism such as chest pain or shortness of breath. The patient was also instructed to drink 40-60 ounces of liquids per day using the 1-ounce cups. The patient had been given prescriptions for Tylenol for pain, Zofran prn for nausea, and pantoprazole and carafate previously. The patient was encouraged to ambulate and use the incentive spirometer. The patient was allowed to shower, but no baths, and encouraged to stay active at home. All of these instructions were given to the patient personally. All questions were answered and the patient understood all instructions, the instructions were also given to the patient in print. Time Spent with Patient Time attestation: Total time spent providing and/or coordinating discharge services: Discharge coordination time: Less than 30 minutes Quality: Safe Use of Opioids Does Pt have an Active Cancer Diagnosis on the Problem List?: No Quality: Stroke Does the patient have a stroke diagnosis?: No Physical Exam Vital Signs: Vital Signs: Last Vital Signs Temp 97.0 F 09/15/21 06:28 Pulse 63 09/15/21 06:28 Resp 16 09/15/21 06:28 BP 127/65 09/15/21 06:28 Pulse Ox 97 09/15/21 06:28 BMI result Body Mass Index 44.6 DS: Data Data Completed and Pending Pending studies at discharge: Pending at discharge 09/15/21 10:02 Surgical [PTH] Routine Labs on day of discharge: Laboratory Results - last 24 hr 09/14/21 09/15/21 14:35 06:15 Urine Test NEGATIVE COVID-19 ([place]) Negative COVID-19 Clin Com See Note Discharge Plan Discharge Anticipated Discharge Date/Time: 09/16/21 10:54 Patient Disposition: Home, Self-Care Discharge Diagnosis: s/p sleeve gastrectomy Referrals: Physician,Unknown J [Primary Care Provider] - 1 Week Discharge Medications: Continued pantoprazole 40 mg tablet,delayed release (DR/EC) 40 mg PO DAILY Qty: 30 2RF sucralfate 100 mg/mL suspension 10 ml PO BID Qty: 400 2RF ondansetron HCl 4 mg tablet 4 mg PO Q12H Qty: 20 0RF Discontinued vitamin A palmitate 10,000 unit tablet 20,000 unit PO DAILY Qty: 30 0RF polyethylene glycol 3350 [Miralax] 17 gram powder in packet 17 g PO DAILY Qty: 14 0RF Rx Instructions: Mix each packet with 8oz of water and do 7 packets on 09/12/21 and another 7 packets on 09/13/21 ascorbate calcium (vitamin C) 500 mg tablet 500 mg PO DAILY 0RF ibuprofen [Motrin IB] 200 mg tablet 200 mg PO Q6H PRN (Reason: Pain) 0RF cholecalciferol (vitamin D3) 125 mcg (5,000 unit) capsule 125 mcg PO DAILY Qty: 30 2RF Discharge Orders: Discharge Order (Routine); Ordered 09/16/21 Ordered By: Kelton Huddleston Activity on Discharge: As tolerated Stand Alone Forms: Patient Portal Discharge page Care Plan Goals: weight loss Health Concerns: morbid obesity Plan of Treatment: No tub baths, sex or returning to work until discussed at first post op appointment. No exercise, alcohol, tobacco or illegal drug use. Continue to use incentive spirometer hourly while awake. Walk in home for 5- 10 minutes every 2 hours during the first week. Continue phase 1 diet today and start phase 2 diet tomorrow morning. Follow all instructions in the bariatric handbook and call with any questions. 1. Please call your doctor or come back to the emergency room should any new symptoms arise. 2. You will receive a courtesy call from [facility] 24-48 hours after discharge. 3. Activity: abstain from alcohol, practice limited stair climbing, no bending, no driving, no exercise, no illicit substances, no lifting, no sex, no tub bath, no work. 4. Diet: continue as discussed with Dr. Huddleston. 5. Dressing Change/Wound Care: Do not change or remove surgical dressings unless they are wet or soiled. 6. Call your doctor if: - Your temperature exceeds 101.5 F - You experience excessive pain or swelling - You have an unexpected reaction to medication - You have excessive bleeding - You experience continued vomiting/nausea - Your incision begins to separate - Your incision shows signs of infection such as increased redness, swelling, excessive pain, heat, or drainage (light blood or clear fluid is normal) 7. General instructions: No lifting greater than 5 lbs for the next 4 weeks[address] driving within 24 hours of taking narcotic pain medications. If you do not move your bowels in the next 2 days, please take milk of magnesia over the counter. Please follow the post op diet and do not advance your diet until you are seen in the office in about 2 weeks. Please walk around your home every hour or two to prevent blood clots from forming in your legs. You do not need to wake from sleeping to walk. Please sleep in a bed or couch to prevent kinking at the hips and knees. Please take your incentive spirometer (your lung civil division commander deputy sheriff) home with you and use it for the next few days to prevent pneumonias. You may shower, no hot tubs, baths or swimming pools. Please call the office with any questions or concerns such as increasing abdominal pain, fever, chills, shortness of breath, chest pain, leg pain or swelling, or redness or drainage from your incisions. Do not hesitate to contact the office with any questions at . The patient's medical history has been reviewed and they are considered low risk for post op DVT and therefore DVT prophylaxis is not considered necessary. Keshia sahni after surgery was reviewed. The patient has not disclosed any travel plans during the first 30 days after surgery and they have been advised that within the first 30 days after surgery any bus, plane, train or car travel over 2 hours in duration is contraindicated due to the possibility of developing blood clots from immobility. Any travel, needs to include periods of ambulation of 10 minutes in duration every 2 hours. The patient was instructed to discuss any plans for travel during this period with their bariatric surgeon. Assessment: stable post op sleeve gastrectomy
--- NOTE | 2021-09-15 11:10 | PM.OP ---
Brief Operative Note Date of Service: 09/15/21 Pre-op diagnosis: Morbid obesity with comorbidities (see below) Post-op diagnosis: same Procedure: INITIAL PATIENT BMI ON PRESENTATION AT OUR OFFICE: 47.5 kg/m2 LAST BMI BEFORE SURGERY: 43.6 kg/m2 COMORBIDITIES: headaches, back/knee pain, liver steatosis, LVH ?The patient presented to the Weight Management Program with significant obesity that was negatively impacting the patient's comorbidities as listed above.? The program is a phased program with a special focus on preoperative medical weight management to promote substantial weight loss and prepare the patients for the second phase of the program: bariatric surgery. The patient participated in an intensive weekly lifestyle ?intervention and exercise program during which the patient ?has lost between the initial office visit and the last preoperative visit 30.2 lbs, 9.81or % of initial actual body weight. It was deemed appropriate for the patient to now have bariatric surgery. In light of the current Covid-19 pandemic and the well documented strong association of obesity and increased risk of worse outcomes if infected with Covid-19 (REFERENCES:https://pubmed.ncbi.nlm.nih.gov/59243751/,?https://pubmed.ncbi.nlm.nih.gov/26266851/), any delay in undergoing bariatric surgery may lead to the patient's worsening health condition and increased?risk of more severe Covid-19 disease if infected. In addition a recent?study from [facility] published in [employer] on 04/12/2021 ([email or web address]) found that, among patients with obesity, substantial weight loss achieved with surgery was associated with improved outcomes of COVID-19 infection. The findings suggest that obesity can be a modifiable risk factor for the severity of COVID-19 infection. In addition, the patient met the BMI-criteria for bariatric surgery based on the BMI on initial presentation. The patient should not be penalized for achieving such weight loss because ?it is not sustainable long-term without surgical intervention and it was achieved in preparation for bariatric surgery ?under my direction and based on my published research ([email or web address]).pdf and?https://www.soard.org/article/[email or web address](72)70201-X/pdf) ?that a 10% preoperative weight loss improves long-term weight loss after surgery and reduces perioperative complications.? Insurance carriers such as [facility] have endorsed my recommendations ?and have included in their policies criteria to include a 10% preoperative weight loss requirement. PROCEDURE: Esophago-gastroscopy, laparoscopic sleeve gastrectomy and laparoscopic gastropexy INDICATIONS: This is a 40 year-old female who was electively scheduled for laparoscopic, possibly open sleeve gastrectomy. The risks and complications of the procedure were discussed with the patient in advance, particularly the possibility of ; pulmonary embolism; staple line leak; bleeding; GERD; cardiac, pulmonary, or renal complications; as well as long-term problems such as insufficient weight loss, vitamin deficiency, strictures, or ulcers. The patient understood all the risks, and was in agreement to proceed with surgery. DESCRIPTION OF PROCEDURE: After informed consent was obtained from the patient, the patient was given preoperative antibiotics, and was transferred to the operating room. After successful induction of general anesthesia, pneumatic compression devices were placed on both lower extremities. An upper endoscopy was performed next. The oropharynx and esophagus appeared to be within normal limits. 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 The stomach was entered. Then after all fluid and air were suctioned and the stomach was fully decompressed, the scope was withdrawn and secured in the mid esophagus. The patient was then prepped and draped in the usual sterile manner, and abdominal access was established at the right upper quadrant with the Radha technique. A 12 mm blunt port was inserted, and the abdomen was insufflated with CO2 to a pressure of 15 mmHg. Under direct visualization, additional ports were placed, specifically two 5 mm Versi-step ports to the left upper quadrant, and a 5 mm Versi-Step port to the right upper quadrant. 1% lidocaine plain was used to infiltrate all port sites as well as all fascia defects. Following that, the patient was placed in a steep reverse Trendelenburg position. An additional 5 mm port was placed to the right flank for the Mediflex retractor that was used to retract the left lobe of the liver. The gastro-esophageal fat pad was opened with the ultrasonic device (Thunderbeat, Olympus) and the anterior esophagus and hiatus were exposed. The angle of His was opened with the ultrasonic device the fundus of the stomach from any diaphragmatic and splenic attachments. I then opened the gastrocolic ligament between the transverse colon and the greater curvature of the stomach with the ultrasonic device to enter the lesser sac and facilitate the ligation of the short gastric vessels. I started at a mid-point along the greater curvature and using the Thunderbeat, all short gastric vessels were divided all the way to the angle of His until the left dmitriy was completely dissected at its entirety. I then divided the gastro-colic ligament distally to a distance of about 3-4 cm proximal to the pylorus. The stomach was then divided transversely with one Endo JOSE E-45 purple, one JOSE E-45 orange load and four JOSE E-60 articulating orange loads using the AEON stapler and loads. Every effort was made that the gastric sleeve had a tubular shape and an even caliber throughout. Once the sleeve resection was completed, the staple line of the gastric sleeve was reinforced with Hemoclips. The resected stomach was retrieved without difficulty from the Radha port. A gastropexy was then performed in order to prevent postoperative GERD and partial gastric volvulus. Several interrupted 2.0 Surgidac sutures were placed between the sleeve's staple line and the previously divided greater omentum and gastro-colic ligament using the Endo-Stitch device. ?An upper endoscopy was performed. There was no narrowing at the GE junction. The scope was easily advanced all the way to the pylorus which was clearly visualized. There was no narrowing anywhere and the sleeve's caliber was even throughout. The sleeve's staple line was inspected and there was no evidence of ischemia, bleeding or dehiscence. At that point the gastroscope was withdrawn from the patient?s mouth while we were decompressing the bowel and the stomach from any remaining air. I looked into the lesser sac to see how the sleeve was situating and it was situating well. There was no bleeding from the staple line, spleen, or short gastric vessels. The Mediflex retractor was removed, and the undersurface of the liver was inspected and there was no bleeding. The patient was placed in supine position. I closed the fascial defect of the 12 mm port site with a figure of eight #1 Polysorb suture. Then 100 cc 0.25 % Marcaine plain with 10 mg of Dexamethasone were used to infiltrate the fascial closure as well as all skin incisions. A total of 7ml of Zynrelef was applied in the Radha wound. At this point, the abdomen was deflated, all ports were removed under direct vision, and no bleeding was noted from any of the port sites. The skin incisions were irrigated with saline and were closed with 4-0 absorbable monofilament sutures. Steri-Strips and OpSites were used to cover all incisions. The patient was extubated and was transferred in stable condition to the recovery room for further care. I was present and performed all benavidez parts of the procedure. Ms. Leon was the orthopedic physician assistant. There were no residents to assist with this case. Fausto Huddleston MD, PhD, FACS Surgeon: Kelton Huddleston MD Anesthesia: GETA, local and other (TAP block and 7ml Zynrelef) Was an Demolition Worker used for this Procedure?: Yes Demolition Worker: Colette Leon Estimated blood loss (mL): 10 IV fluids (mL): 3,000 Urine output (mL): 0 (No Montero to record) Pathology: other (Stomach) Condition: stable Disposition: PACU
[2021-09-15] MEDS: Famotidine/PF 20 MG/2 ML VIAL IVPUSH ×2 (11:11→22:06)
--- NOTE | 2021-09-15 11:14 | P.PNGS_ITS ---
Subjective Subjective Date of Service: 09/16/21 Interval history: Patient has mild incisional pain, but was able to ambulate and use the incentive spirometer. She is tolerating phase 1 bariatric diet Physical Exam Vital Signs: Vital Signs: Last Vital Signs Temp 98.5 F 09/15/21 10:52 Pulse 86 09/15/21 11:02 Resp 22 H 09/15/21 11:02 BP 143/70 H 09/15/21 11:02 Pulse Ox 100 09/15/21 11:02 BMI result Body Mass Index 44.6 GI: Inspection: Yes normal to inspection, Yes incision (clean, dry and intact) and Yes obesity Extrem: Right lower extremity: normal to inspection (no calf tenderness) Left lower extremity: normal to inspection (no calf tenderness) Objective Data Active Medications Famotidine (Famotidine/Pf 20 Mg/2 Ml Vial) 20 mg IVPUSH BID JOSE J Fentanyl (Fentanyl Citrate/Pf 100 Mcg/2 Ml Vial) 25 mcg IVPUSH Q5M PRN; Pro tocol PRN Reason: Pain, Moderate (Pain Scale 4-6 Hydromorphone HCl (Hydromorphone Hcl 0.5 Mg/0.5 Ml Syringe) 0.25 mg IVPUSH Q5M PRN; Protocol PRN Reason: Pain, Severe (Pain Scale 7-10) Lactated Ringer's (Lr) 1,000 mls @ 100 mls/hr IVCONT .Q10H [facility] Last Admin: 09/15/21 06:52 Dose: 100 mls/hr Documented by: ANWAF Promethazine HCl 6.25 mg/ (Sodium Chloride) 50.25 mls @ 201 mls/hr IV ONCE PRN PRN Reason: Nausea and Vomiting Metoclopramide HCl (Metoclopramide Hcl 10 Mg/2 Ml Vial) 10 mg IVPUSH Q6H PRN PRN Reason: Nausea Ondansetron HCl (Ondansetron Hcl 4 Mg/2 Ml Vial) 4 mg IVPUSH ONCE PRN PRN Reason: Nausea and Vomiting Labs CBC & Chem 7: 09/16/21 05:46 09/16/21 05:46 Labs: Laboratory Results - last 24 hr 09/14/21 09/15/21 14:35 06:15 Urine Test NEGATIVE COVID-19 ([place]) Negative COVID-19 Clin Com See Note Procedures Date of Service Date of Service: 09/16/21 Progress Note: A&P Assessment and plan (1) S/P laparoscopic sleeve gastrectomy: Status: Acute Assessment and Plan: s/p laparoscopic sleeve gastrectomy, lysis of adhesions repair of diaphragmatic hernia, and gastropexy Doing well Check am labs. If OK, will discharge home (2) Morbid obesity: Status: Acute (3) Back pain: Status: Acute (4) LVH (left ventricular hypertrophy): Status: Acute (5) Steatosis, liver: Status: Acute Time Spent With Patient Time: Total time spent is greater than 50% in coordination of care (as documented) at patient's floor/unit and/or counseling patient: Quality Stroke Does the patient have a stroke diagnosis?: No VTE Prior VTE?: No VTE Risk Level:: Surgical - moderate VTE Device Contraindication: N/A - Device Ordered VTE Drug Contraindication: Treatment Not Indicated
[2021-09-15 11:45] LABS: Hematocrit 41.2 % (37.0-47.0)
[2021-09-15 11:51] LABS: Anion Gap 13 (12-20); Blood Urea Nitrogen 10 mg/dL (9-16); Calcium 9.3 mg/dL (8.4-10.2); Carbon Dioxide 26 mmol/L (22-29); Chloride 106 mmol/L (96-108); Creatinine Clr Calc Pharmacy 130.9; Estimated Glomerular Filt Rate > 60; Glucose Random 154 mg/dL (60-115); Potassium 3.5 mmol/L (3.3-5.1); Sodium 141 mmol/L (135-145)
[2021-09-15] MEDS: Lactated Ringers 1,000 ML 150 ML IVCONT ×2 (12:27→22:04)
[2021-09-15] MEDS: ondansetron HCL 4 MG/2 ML VIAL IVPUSH ×2 (13:37→22:06)
[2021-09-16] MEDS: 0.9 % Sodium Chloride Flush 3 ML SYRINGE IVFLUSH ×2 (00:15→08:07)
--- NOTE | 2021-09-16 00:15 | MHC.PIE ---
P.BLEEDING FROM MIDDLE ABD DRESSING I.NOTED BLEEDING FROM MIDDLE SMALL DRESSING.SOAKED THRU.PT DENIES PAIN,VS STABLE.PT STATED SHE HAD REMOVED HER ABD BINDER BECAUSE SHE HAD GAS PAIN.MARILY LEAL NOTIFIED.PHOTO TAKEN OF DRESSING AND SENT TO . STATES TO REINFORCE DRESSING AND IT WILL BE CHANGED IN AM.DRESSING REINFORCED AND ABD BINDER BACK ON.PT INSTRUCTED NOT TO REMOVE IT. E.CONT TO MONITOR.
[2021-09-16 03:51] VITALS: BP 121/73; PULSE 68; RESP 18; TEMP 36.9; O2SAT 96
[2021-09-16] MEDS: ondansetron HCL 4 MG/2 ML VIAL IVPUSH (04:57)
[2021-09-16] MEDS: Lactated Ringers 1,000 ML 150 ML IVCONT (04:58)
[2021-09-16 05:58] LABS: MANUAL DIFF FLAG NO
[2021-09-16 06:03] LABS: Basophils Percent Auto 0.2 % (0-2); Hematocrit 39.4 % (37.0-47.0); Hemoglobin 12.5 g/dl (12.0-16.0); Imm Gran Abs Auto 0.04 X10*3/uL (0.00-0.03); Imm Gran Pct Auto 0.3 % (0.0-0.4); Lymphocytes Percent Auto 16.8 % (20-40); Mean Corpuscular HGB Conc 31.7 g/dl (31.0-35.0); Mean Corpuscular Hemoglobin 26.4 pg (27.0-33.0); Mean Corpuscular Volume 83.3 fL (80.0-98.0); Mean Platelet Volume 10.9 fL (9.4-12.3); Monocytes Absolute Auto 0.7 X10*3/uL (0.1-1.2); Monocytes Percent Auto 5.5 % (2-11); Neutrophils Absolute Auto 9.3 x10*3/uL (2.0-8.3); Neutrophils Percent Auto 77.2 % (45-73); Platelet Count 272 X10*3/uL (160-400); Red Blood Count 4.73 X10*6/uL (4.20-5.50); Red Cell Distribution Width 13.9 % (11.0-16.0); White Blood Count 12.1 X10*3/uL (4.8-10.8)
[2021-09-16 06:22] LABS: Anion Gap 12 (12-20); Blood Urea Nitrogen 6 mg/dL (9-16); Calcium 9.8 mg/dL (8.4-10.2); Carbon Dioxide 26 mmol/L (22-29); Chloride 107 mmol/L (96-108); Creatinine Clr Calc Pharmacy 143.7; Estimated Glomerular Filt Rate > 60; Glucose Random 101 mg/dL (60-115); Potassium 3.8 mmol/L (3.3-5.1); Sodium 141 mmol/L (135-145)
--- NOTE | 2021-09-16 07:06 | HO.POSTANES ---
Post Anesthesia Evaluation Post Anesthesia Evaluation Vital Signs: Vital Signs Temp Pulse Resp BP Pulse Ox 09/16/21 03:51 98.5 F 68 18 121/73 96 09/15/21 23:26 98 F 70 18 121/81 98 09/15/21 20:00 97.5 F 67 18 146/75 H 97 09/15/21 19:55 97.5 F 67 18 146/75 H 97 Anesthesia: General Endotracheal-GETA Mental Status: Awake Pain Control: Satisfactory Nausea/Vomiting: None Hydration: Adequate Anesthesia-Related Issues: No Anes. Related Issues
[2021-09-16 07:22] VITALS: BP 176/80; PULSE 72; RESP 17; TEMP 36.9; O2SAT 97
[2021-09-16] MEDS: Famotidine/PF 20 MG/2 ML VIAL IVPUSH (08:07)
--- NOTE | 2021-09-16 09:21 | MHC.CM.PN ---
PT IS FULLY INDEPENDENT, HAS NO HOME SERVICES, NO DME AND IS EMPLOYED PT DOES NOT HAVE A HCP PCP: JASVIR SANCHEZ PT WAS IN SHOWER WHEN CM ATTEMPTED TO MEET WITH HER, VA RIGHTS LEFT AT BEDSIDE WITH CONTACT CARD CM WILL ATTEMPT TO REVISIT PRIOR TO PTS DC PT WILL DC HOME TODAY WITH NO SERVICES
== END 2021-09-16 10:38 | disposition home or self-care (01) | DRG 621 ==
LOC: HO.SSSA 10:56 → HO.S3 11:45
PROVIDERS: Nurse Practitioner; Physician Assistant; Physician Assistant Surgical; Admitting Provider Surgery; PCP Family Medicine; Visit Provider Surgery
PROC: 0DB64Z3 Excision of Stomach, Percutaneous Endoscopic Approach, Vertical (ICD-10-PCS; CPT 43845; principal; 2021-09-15 07:30)
DX: E66.01 Morbid (severe) obesity due to excess calories (principal); G47.33 Obstructive sleep apnea (adult) (pediatric); G43.909 Migraine, unspecified, not intractable, without status migrainosus; Z20.822 Contact with and (suspected) exposure to COVID-19; Z68.41 Body mass index [BMI] 40.0-44.9, adult; M54.9 Dorsalgia, unspecified; K76.0 Fatty (change of) liver, not elsewhere classified; I51.7 Cardiomegaly; Z87.891 Personal history of nicotine dependence
CPT/HCPCS: 36415; 80048; 80053; 80061; 81025; 83036; 83525; 84443; 85014; 85018; 85025; 85610; 85730; 86140; 86850; 86900; 86901; 87635; 88307; 88342; 99024; A4649; C9088; J0131; J0690; J1100; J1170; J2250; J2405; J2765; J3010

== ENCOUNTER → 2021-09-21 13:55 | Outpatient (BNVA) | payer OTHER, SELFPAY | PROVIDERS: PCP Family Medicine; Visit Provider Physician Assistant Surgical | DX: Z13.89 Encounter for screening for other disorder (principal) ==

== ENCOUNTER → 2021-10-12 10:55 | Outpatient (BNVA) | payer OTHER, SELFPAY | PROVIDERS: PCP Family Medicine; Visit Provider Dietitian, Registered | DX: E66.9 Obesity, unspecified (principal); Z68.38 Body mass index [BMI] 38.0-38.9, adult; Z98.84 Bariatric surgery status; Z71.3 Dietary counseling and surveillance | CPT/HCPCS: 97803 ==

== ENCOUNTER → 2021-10-27 11:00 | Outpatient (BNVA) | payer OTHER, SELFPAY | PROVIDERS: PCP Family Medicine; Referring Provider Surgery; Visit Provider Dietitian, Registered | DX: E66.9 Obesity, unspecified (principal); Z68.38 Body mass index [BMI] 38.0-38.9, adult | CPT/HCPCS: 97803 ==

== ENCOUNTER → 2021-10-27 17:00 | Outpatient (BNVA) | payer OTHER, SELFPAY | PROVIDERS: PCP Family Medicine; Visit Provider Counselor Mental Health ==

== ENCOUNTER 2021-11-08 09:19 | Outpatient (REF) | payer OTHER, SELFPAY ==
--- NOTE | ~2021-11-08 | US_ITS ---
EXAMINATION: US VENOUS ULTRASOUND WITH DOPPLER LOWER EXTREMITY, RIGHT CLINICAL INFORMATION: Localized edema COMPARISON: None TECHNIQUE: Ultrasound of the deep veins is performed from the hip to the calf with compression sonography and color and pulse Doppler assessment. Spectral analysis with color-flow imaging is performed. FINDINGS: There is normal venous compression and respiratory variation and augmented flow. The visualized common femoral vein, superficial femoral vein, profunda femoral vein, popliteal vein, and the trifurcation region shows no evidence of deep venous thrombosis. There is no significant popliteal fossa cyst. There are small right groin lymph nodes measuring 1 cm in maximum dimension. If the patient's symptoms persist, followup ultrasound in 5 days 7 days might be of value to exclude proximal propagation from a non-visualized calf vein. US/US venous duplex LE RT IMPRESSION: No DVT demonstrated in the right lower extremity.
== END 2021-11-08 09:20 | disposition home or self-care (01) ==
LOC: HO.US 09:19
PROVIDERS: Visit Provider Physician Assistant Surgical
DX: R60.0 Localized edema (principal)
CPT/HCPCS: 93971

== ENCOUNTER → 2021-11-17 11:07 | Outpatient (BNVA) | payer OTHER, SELFPAY | PROVIDERS: PCP Family Medicine; Referring Provider Surgery; Visit Provider Dietitian, Registered | DX: E66.9 Obesity, unspecified (principal); Z68.39 Body mass index [BMI] 39.0-39.9, adult; Z71.3 Dietary counseling and surveillance | CPT/HCPCS: 97803 ==

== ENCOUNTER → 2021-12-15 15:31 | Outpatient (BNVA) | payer OTHER, SELFPAY | PROVIDERS: PCP Family Medicine; Referring Provider Surgery; Visit Provider Dietitian, Registered | DX: E66.9 Obesity, unspecified (principal); F50.81 Binge eating disorder; Z98.84 Bariatric surgery status; Z68.38 Body mass index [BMI] 38.0-38.9, adult | CPT/HCPCS: 90853; 97803 ==

== ENCOUNTER → 2022-01-12 17:00 | Outpatient (BNVA) | payer OTHER, SELFPAY | PROVIDERS: PCP Family Medicine; Visit Provider Counselor Mental Health | DX: F50.81 Binge eating disorder (principal); Z98.84 Bariatric surgery status | CPT/HCPCS: 90853 ==

== ENCOUNTER → 2022-01-19 17:00 | Outpatient (BNVA) | payer OTHER, SELFPAY | PROVIDERS: PCP Family Medicine; Visit Provider Counselor Mental Health | DX: F50.81 Binge eating disorder (principal); Z98.84 Bariatric surgery status | CPT/HCPCS: 90853 ==

== ENCOUNTER → 2022-01-21 15:23 | Outpatient (BNVA) | payer OTHER, SELFPAY | PROVIDERS: PCP Family Medicine; Visit Provider Dietitian, Registered | DX: E66.9 Obesity, unspecified (principal); Z68.37 Body mass index [BMI] 37.0-37.9, adult | CPT/HCPCS: 97803 ==

== ENCOUNTER → 2022-01-26 17:00 | Outpatient (BNVA) | payer OTHER, SELFPAY | PROVIDERS: PCP Family Medicine; Visit Provider Counselor Mental Health | DX: F50.81 Binge eating disorder (principal); Z98.84 Bariatric surgery status | CPT/HCPCS: 90853 ==

== ENCOUNTER → 2022-02-02 17:00 | Outpatient (BNVA) | payer OTHER, SELFPAY | PROVIDERS: PCP Family Medicine; Visit Provider Counselor Mental Health | DX: F50.81 Binge eating disorder (principal); Z98.84 Bariatric surgery status | CPT/HCPCS: 90853 ==

== ENCOUNTER → 2022-02-09 17:00 | Outpatient (BNVA) | payer OTHER, SELFPAY | PROVIDERS: PCP Family Medicine; Visit Provider Counselor Mental Health | DX: F50.81 Binge eating disorder (principal); Z98.84 Bariatric surgery status | CPT/HCPCS: 90853 ==

== ENCOUNTER → 2022-02-14 15:39 | Outpatient (BNVA) | payer OTHER, SELFPAY | PROVIDERS: PCP Family Medicine; Visit Provider Dietitian, Registered | DX: E66.01 Morbid (severe) obesity due to excess calories (principal); Z68.37 Body mass index [BMI] 37.0-37.9, adult | CPT/HCPCS: 97803 ==

== ENCOUNTER → 2022-02-16 17:00 | Outpatient (BNVA) | payer OTHER, SELFPAY | PROVIDERS: PCP Family Medicine; Visit Provider Counselor Mental Health ==

== ENCOUNTER 2022-02-22 09:32 | Outpatient (REF) | payer OTHER, SELFPAY ==
[2022-02-22 13:08] LABS: Influenza A PCR NEGATIVE (Negative); Influenza B PCR NEGATIVE (Negative); Resp Syncy Virus RNA Qual PCR POSITIVE (Negative); SARS COV2 PCR INHOUSE NEGATIVE (Negative)
== END 2022-02-22 09:33 | disposition home or self-care (01) ==
LOC: HO.LAB 09:32
PROVIDERS: Visit Provider Nurse Practitioner Family
DX: Z20.822 Contact with and (suspected) exposure to COVID-19 (principal); R09.89 Other specified symptoms and signs involving the circulatory and respiratory systems
CPT/HCPCS: 0241U

== ENCOUNTER 2022-03-14 06:12 | Outpatient (REF) | payer OTHER, SELFPAY ==
[2022-03-14 06:17] LABS: MANUAL DIFF FLAG NO
[2022-03-14 07:26] LABS: Basophils Absolute Auto 0.1 X10*3/uL (0.0-0.2); Basophils Percent Auto 0.8 % (0-2); Eosinophils Absolute Auto 0.3 X10*3/uL (0.0-0.4); Eosinophils Percent Auto 5.1 % (0-4); Hematocrit 39.4 % (37.0-47.0); Hemoglobin 12.6 g/dl (12.0-16.0); Imm Gran Abs Auto 0.02 X10*3/uL (0.00-0.03); Imm Gran Pct Auto 0.3 % (0.0-0.4); Lymphocytes Absolute Auto 3.2 X10*3/uL (1.2-4.9); Lymphocytes Percent Auto 51.5 % (20-40); Mean Corpuscular Hemoglobin 27.2 pg (27.0-33.0); Mean Corpuscular Volume 84.9 fL (80.0-98.0); Mean Platelet Volume 10.8 fL (9.4-12.3); Monocytes Absolute Auto 0.4 X10*3/uL (0.1-1.2); Monocytes Percent Auto 5.7 % (2-11); Neutrophils Absolute Auto 2.2 x10*3/uL (2.0-8.3); Neutrophils Percent Auto 36.6 % (45-73); Platelet Count 273 X10*3/uL (160-400); Red Blood Count 4.64 X10*6/uL (4.20-5.50); White Blood Count 6.1 X10*3/uL (4.8-10.8)
[2022-03-14 07:55] LABS: Estimated Average Glucose 105 mg/dL; Hemoglobin A1c % 5.3 %
[2022-03-14 08:19] LABS: Alanine Aminotransferase 18 U/L (0-31); Alkaline Phosphatase 55 U/L (39-117); Anion Gap 12 (12-20); Aspartate Amino Transferase 17 U/L (5-31); Bilirubin Total 0.4 mg/dL (0.0-1.0); Blood Urea Nitrogen 14 mg/dL (9-16); C Reactive Protein 0.15 mg/dL (< or = 0.50); Calcium 9.2 mg/dL (8.4-10.2); Carbon Dioxide 27 mmol/L (22-29); Chloride 105 mmol/L (96-108); Cholesterol 229 mg/dL; Estimated Glomerular Filt Rate > 60; Ferritin 187 ng/mL (10-250); Glucose Random 88 mg/dL (60-115); HDL Cholesterol 48 mg/dL; Insulin 7 uU/mL (2-29); Iron 60 mcg/dL (30-160); LDL Cholesterol Calculated 166 mg/dl; Percent Iron Saturation 24 % (15-50); Potassium 3.9 mmol/L (3.3-5.1); Sodium 140 mmol/L (135-145); TSH reflex Free T4 1.39 uIU/mL (0.32-4.0); Total Iron Binding Capacity 247 mcg/dL (228-428); Total Protein 6.8 g/dL (6.5-8.0); Triglycerides 78 mg/dL; Unsaturated Iron Binding 187 ug/dL; Vitamin D 25-OH Total 33.7 ng/mL (>30)
[2022-03-14 08:32] LABS: Folate 11.8 ng/mL (> or = 4.0); Vitamin B12 1110 pg/mL (200-900)
[2022-03-16 12:22] LABS: Calcium (PTHI) 9.3 mg/dL (8.6-10.2); PTHI 28 pg/mL (16-77)
[2022-03-18 04:18] LABS: Zinc 80 mcg/dL (60-130)
[2022-03-18 14:38] LABS: Vitamin A 40 mcg/dL (38-98)
[2022-03-19 14:18] LABS: Vitamin B1 13 nmol/L (8-30)
== END 2022-03-14 06:13 | disposition home or self-care (01) ==
LOC: HO.LAB 06:12
PROVIDERS: Visit Provider Physician Assistant Surgical
DX: E66.9 Obesity, unspecified (principal); Z68.37 Body mass index [BMI] 37.0-37.9, adult; Z98.84 Bariatric surgery status
CPT/HCPCS: 36415; 80053; 80061; 82306; 82607; 82728; 82746; 83036; 83525; 83540; 83970; 84425; 84443; 84590; 84630; 85025; 86140; 99212

== ENCOUNTER → 2022-03-16 17:00 | Outpatient (BNVA) | payer OTHER, SELFPAY | PROVIDERS: Visit Provider Counselor Mental Health | DX: F50.81 Binge eating disorder (principal); Z98.84 Bariatric surgery status | CPT/HCPCS: 90853 ==

== ENCOUNTER → 2022-03-23 17:00 | Outpatient (BNVA) | payer OTHER, SELFPAY | PROVIDERS: Visit Provider Counselor Mental Health | DX: F50.81 Binge eating disorder (principal); Z98.84 Bariatric surgery status | CPT/HCPCS: 90853 ==

== ENCOUNTER → 2022-04-20 17:00 | Outpatient (BNVA) | payer OTHER, SELFPAY | PROVIDERS: Visit Provider Counselor Mental Health | DX: F50.81 Binge eating disorder (principal); Z98.84 Bariatric surgery status | CPT/HCPCS: 90853 ==

== ENCOUNTER → 2022-05-04 17:00 | Outpatient (BNVA) | payer OTHER, SELFPAY | PROVIDERS: Visit Provider Counselor Mental Health | DX: F50.81 Binge eating disorder (principal); Z98.84 Bariatric surgery status | CPT/HCPCS: 90853 ==

== ENCOUNTER → 2022-05-06 14:51 | Outpatient (BNVA) | payer OTHER, SELFPAY | PROVIDERS: Visit Provider Dietitian, Registered | DX: E66.9 Obesity, unspecified (principal); Z68.36 Body mass index [BMI] 36.0-36.9, adult | CPT/HCPCS: 97803 ==

== ENCOUNTER → 2022-05-18 17:06 | Outpatient (BNVA) | payer OTHER, SELFPAY | PROVIDERS: Visit Provider Counselor Mental Health | DX: F50.81 Binge eating disorder (principal); Z98.84 Bariatric surgery status | CPT/HCPCS: 90853 ==

== ENCOUNTER → 2022-05-25 16:57 | Outpatient (BNVA) | payer OTHER, SELFPAY | PROVIDERS: Visit Provider Counselor Mental Health | DX: Z13.89 Encounter for screening for other disorder (principal) ==

== ENCOUNTER 2022-05-25 20:55 | Emergency (ER) | payer OTHER, SELFPAY ==
[2022-05-25 20:57] VITALS: BP 164/91; PULSE 73; RESP 20; TEMP 36.2; O2SAT 97; BMI 36.9
--- NOTE | 2022-05-25 21:01 | ECG_ITS ---
Test Reason : CHEST PAIN Blood Pressure : / mmHG Vent. Rate : 065 BPM Atrial Rate : 065 BPM P-R Int : 192 ms QRS Dur : 090 ms QT Int : 428 ms P-R-T Axes : 044 000 008 degrees QTc Int : 445 ms Normal sinus rhythm Nonspecific T wave abnormality Abnormal ECG When compared with ECG of 08-JUN-2021 09:17, No significant change was found Referred By: Generic ED Physician Electronically Signed By:MARIELY MEADOWS MD
[2022-05-25 21:20] LABS: MANUAL DIFF FLAG NO
[2022-05-25 21:21] LABS: Basophils Absolute Auto 0.1 X10*3/uL (0.0-0.2); Basophils Percent Auto 0.7 % (0-2); Eosinophils Absolute Auto 0.4 X10*3/uL (0.0-0.4); Eosinophils Percent Auto 5.6 % (0-4); Hematocrit 35.1 % (37.0-47.0); Hemoglobin 11.4 g/dl (12.0-16.0); Imm Gran Abs Auto 0.01 X10*3/uL (0.00-0.03); Imm Gran Pct Auto 0.1 % (0.0-0.4); Lymphocytes Absolute Auto 3.3 X10*3/uL (1.2-4.9); Lymphocytes Percent Auto 46.5 % (20-40); Mean Corpuscular HGB Conc 32.5 g/dl (31.0-35.0); Mean Corpuscular Volume 83.2 fL (80.0-98.0); Mean Platelet Volume 9.8 fL (9.4-12.3); Monocytes Absolute Auto 0.5 X10*3/uL (0.1-1.2); Monocytes Percent Auto 6.4 % (2-11); Neutrophils Absolute Auto 2.9 x10*3/uL (2.0-8.3); Neutrophils Percent Auto 40.7 % (45-73); Platelet Count 247 X10*3/uL (160-400); Red Blood Count 4.22 X10*6/uL (4.20-5.50); Red Cell Distribution Width 13.7 % (11.0-16.0); White Blood Count 7.2 X10*3/uL (4.8-10.8)
[2022-05-25 21:24] VITALS: BP 139/75; PULSE 65; RESP 15; TEMP 36.8; O2SAT 99
[2022-05-25 21:37] LABS: Anion Gap 14 (12-20); Blood Urea Nitrogen 15 mg/dL (9-16); Calcium 8.8 mg/dL (8.4-10.2); Chloride 107 mmol/L (96-108); Creatinine Clr Calc Pharmacy 121.8; Estimated Glomerular Filt Rate > 60; Glucose Random 107 mg/dL (60-115); Potassium 3.4 mmol/L (3.3-5.1); Sodium 140 mmol/L (135-145)
[2022-05-25 21:38] LABS: Carbon Dioxide 22 mmol/L (22-29)
--- NOTE | 2022-05-25 21:45 | ED.CHESTPAIN ---
HPI - Chest Pain General Chief Complaint: Chest Pain Stated Complaint: Chest pain into back Time Seen by Provider: 05/25/22 21:37 Source: patient Mode of arrival: ambulatory Limitations: no limitations History of Present Illness HPI narrative: Patient with no history of known cardiac disease had a stress test 09/05 normal been having atypical chest pain multiple times seen by perinatal nurse last year workup was negative today around 17:00 noticed right-sided sharp chest pain increases on deep inspiration and movements radiating to the left side no diaphoresis no nausea no vomiting no shortness of breath Related Data Previous Rx's Medication Instructions Recorded cetirizine 10 mg tablet (Zyrtec) 10 mg PO DAILY 30 days #30 tabs 02/22/22 dextromethorphan polistirex 30 10 ml PO Q12H PRN cough 5 days 02/22/22 mg/5 mL oral susp ext.release 12hr #100 mL (Delsym 12 hour) Allergies Allergy/AdvReac Type Severity Reaction Status Date / Time avocado Allergy Vomiting Verified 03/14/22 15:38 pineapple Allergy Itching Verified 03/14/22 15:38 Review of Systems Review of Systems: Yes all other systems are reviewed and are negative PMF Past Medical History Medical History Back pain Binge-eating disorder, in partial remission, moderate Daytime somnolence Equivocal stress test History of epidural anesthesia Irregular heart beat Migraines ANDREA (obstructive sleep apnea) Pre-op evaluation Seasonal allergies Steatosis, liver Vitamin A deficiency Vitamin D deficiency Surgical History History of wisdom tooth extraction Family History Family History Mother Anemia Father No problems noted. Daughter Asthma Daughter No problems noted. Social History Social History Are you a primary home care giver to a significant other at home: No Do you presently have visiting nurse or other home services: No Alcohol intake: never Patient Tobacco Use Status: Former Tobacco user Quit Date: 2007 Tobacco use type: Cigarette Years Smoked: last 2007 Smoked in Last 30 Days: No Use of substances other than those prescribed or required for medical reasons: No Advance Directives: No Patient : No service: No Current occupational status: employed Physical Exam Vital Signs: Vital Signs: Last Vital Signs Temp 98.2 F 05/25/22 21:24 Pulse 65 05/25/22 21:24 Resp 15 05/25/22 21:24 BP 139/75 05/25/22 21:24 Pulse Ox 99 05/25/22 21:24 O2 Del Method 05/25/22 21:24 BMI result Body Mass Index 36.9 Appearance: Alert. Oriented X3. No acute distress. Eyes: PERRLA, No Nystagmus ENT: Pharynx normal. Oral Mucosa moist Neck: Normal inspection. Neck supple. CVS: Normal heart rate and rhythm. Pulses normal. Right chest wall tenderness Respiratory: No respiratory distress. Equal air entry bilateral, no wheezing/rales/rhonchi Abdomen: Soft and nontender. Bowel sounds are present, no mass palpable, Skin: Skin warm and dry. Normal skin color. Normal skin turgor. Extremities: No lower extremity edema. No calf tenderness Neuro: Oriented X 3. No motor deficit. Medical Decision Making Medical Decision Making [facility] Narrative: Patient has atypical chest pain previous cardiac workup negative heart score of 0 ,ekg with no acute changes High sensitive troponin negative will discharge patient home advised to follow with PCP Lab Data [facility] Lab Attestation statement: I reviewed the patient's lab results. 05/25/22 21:16 05/25/22 21:16 Labs: Lab Results 05/25/22 05/25/22 05/25/22 Range/Units 21:16 21:16 21:16 WBC 7.2 (4.8-10.8) X10*3/uL RBC 4.22 (4.20-5.50) X10*6/uL Hgb 11.4 L (12.0-16.0) g/dl Hct 35.1 L (37.0-47.0) % MCV 83.2 (80.0-98.0) fL MCH 27.0 (27.0-33.0) pg MCHC 32.5 (31.0-35.0) g/dl RDW 13.7 (11.0-16.0) % Plt Count 247 (160-400) X10*3/uL MPV 9.8 (9.4-12.3) fL Immature Gran % (Auto) 0.1 (0.0-0.4) % Neut % (Auto) 40.7 L (45-73) % Lymph % (Auto) 46.5 H (20-40) % Ashley % (Auto) 6.4 (2-11) % Eos % (Auto) 5.6 H (0-4) % Baso % (Auto) 0.7 (0-2) % Lymph # (Auto) 3.3 (1.2-4.9) X10*3/uL Ashley # (Auto) 0.5 (0.1-1.2) X10*3/uL Eos # (Auto) 0.4 (0.0-0.4) X10*3/uL Baso # (Auto) 0.1 (0.0-0.2) X10*3/uL Abs Immat Gran (auto) 0.01 (0.00-0.03) X10*3/uL Absolute Neuts (auto) 2.9 (2.0-8.3) x10*3/uL Absolute Nucleated RBC 0.000 (0.0-0.012) X10*3/uL Nucleated RBC % (auto) 0.0 (0.0-0.2) /100WBC Sodium 140 (135-145) mmol/L Potassium 3.4 (3.3-5.1) mmol/L Chloride 107 (96-108) mmol/L Carbon Dioxide 22 (22-29) mmol/L Anion Gap 14 (12-20) BUN 15 (9-16) mg/dL Creatinine 0.74 (0.5-1.4) mg/dL Estim Creat Clear Calc 121.8 Estimated GFR > 60 Random Glucose 107 (60-115) mg/dL Calcium 8.8 (8.4-10.2) mg/dL Troponin I High Sens < 3.5 (<3.5-17.0) ng/L Independent Interpretation I performed an independent interpretation of an: EKG Interpretation: Normal sinus rhythm heart rate is 65 beats per minute normal interval normal axis no acute ST-T changes no acute ischemia Discharge Plan Discharge Clinical Impression: Atypical chest pain Patient Disposition: Home, Self-Care Instructions: Chest Pain (ED) Additional Instructions: Your chest pain is unlikely from the heart Your blood workup is normal Follow-up with PCP Prescriptions: No Action cetirizine [Zyrtec] 10 mg tablet 10 mg PO DAILY 30 Days Qty: 30 0RF dextromethorphan polistirex [Delsym 12 hour] 30 mg/5 mL suspension,extended rel 12 hr 10 ml PO Q12H PRN (Reason: cough) 5 Days Qty: 100 0RF
[2022-05-25 21:46] LABS: Troponin-I High Sensitivity < 3.5 ng/L (<3.5-17.0)
== END 2022-05-25 22:19 | disposition home or self-care (01) ==
PROVIDERS: Emergency Provider Internal Medicine
DX: R07.89 Other chest pain (principal); Z87.891 Personal history of nicotine dependence; Z79.899 Other long term (current) drug therapy
CPT/HCPCS: 36415; 80048; 84484; 85025; 90853; 93005; 99284

== ENCOUNTER → 2022-06-08 14:53 | Outpatient (BNVA) | payer OTHER, SELFPAY | PROVIDERS: Visit Provider Dietitian, Registered | DX: E66.9 Obesity, unspecified (principal); Z68.37 Body mass index [BMI] 37.0-37.9, adult; F50.81 Binge eating disorder; Z98.84 Bariatric surgery status | CPT/HCPCS: 90853; 97803 ==

== ENCOUNTER → 2022-06-15 16:53 | Outpatient (BNVA) | payer OTHER, SELFPAY | PROVIDERS: Visit Provider Counselor Mental Health | DX: F50.81 Binge eating disorder (principal); E50.9 Vitamin A deficiency, unspecified; E55.9 Vitamin D deficiency, unspecified; Z87.891 Personal history of nicotine dependence; Z90.3 Acquired absence of stomach [part of] | CPT/HCPCS: 90853 ==

== ENCOUNTER → 2022-07-06 17:00 | Outpatient (BNVA) | payer OTHER, SELFPAY | PROVIDERS: Visit Provider Counselor Mental Health | DX: F50.81 Binge eating disorder (principal); Z98.84 Bariatric surgery status | CPT/HCPCS: 90853 ==

== ENCOUNTER → 2022-07-13 17:08 | Outpatient (BNVA) | payer OTHER, SELFPAY | PROVIDERS: Visit Provider Counselor Mental Health | DX: F50.81 Binge eating disorder (principal); E50.9 Vitamin A deficiency, unspecified; E55.9 Vitamin D deficiency, unspecified; Z98.84 Bariatric surgery status | CPT/HCPCS: 90853 ==

== ENCOUNTER → 2022-07-20 17:00 | Outpatient (BNVA) | payer OTHER, SELFPAY | PROVIDERS: Visit Provider Counselor Mental Health | DX: F50.81 Binge eating disorder (principal); Z98.84 Bariatric surgery status | CPT/HCPCS: 90853 ==

== ENCOUNTER → 2022-07-27 16:58 | Outpatient (BNVA) | payer OTHER, SELFPAY | PROVIDERS: Visit Provider Counselor Mental Health | DX: F50.81 Binge eating disorder (principal); Z98.84 Bariatric surgery status | CPT/HCPCS: 90853 ==

== ENCOUNTER → 2022-08-10 17:10 | Outpatient (BNVA) | payer OTHER, SELFPAY | PROVIDERS: Visit Provider Counselor Mental Health ==

== ENCOUNTER → 2022-08-26 15:11 | Outpatient (BNVA) | payer OTHER, MEDICAID, SELFPAY | PROVIDERS: Visit Provider Dietitian, Registered | DX: E66.9 Obesity, unspecified (principal); F50.81 Binge eating disorder; Z68.36 Body mass index [BMI] 36.0-36.9, adult; Z71.3 Dietary counseling and surveillance | CPT/HCPCS: 97803 ==

== ENCOUNTER → 2022-08-31 17:00 | Outpatient (BNVA) | payer OTHER, MEDICAID, SELFPAY | PROVIDERS: Visit Provider Counselor Mental Health | DX: F50.81 Binge eating disorder (principal); Z98.84 Bariatric surgery status | CPT/HCPCS: 90853 ==

== ENCOUNTER → 2022-09-14 17:06 | Outpatient (BNVA) | payer OTHER, MEDICAID, SELFPAY | PROVIDERS: Visit Provider Counselor Mental Health | DX: F50.81 Binge eating disorder (principal); Z98.84 Bariatric surgery status | CPT/HCPCS: 90853 ==

== ENCOUNTER → 2022-10-19 17:10 | Outpatient (BNVA) | payer OTHER, MEDICAID, SELFPAY | PROVIDERS: PCP Family Medicine; Visit Provider Counselor Mental Health ==

== ENCOUNTER 2022-11-02 09:58 | Outpatient (AMB) | payer OTHER, MEDICAID, SELFPAY ==
--- NOTE | 2022-11-02 10:10 | MHC.PC.OV ---
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 Sanchez Last office visit/CPE: > 2 years Acute issue(s): Bilateral knee pain, R worse than L Reynaud's Phenomenon Ammenorrhea - Will refer to [employer]ER PMHx: Knee pain, Ammenorrhea SurgHx: Gastric sleeve FHx: Mom: Iron deficiency anemia. Dad: Healthy. Aunts: Breast Cancer. Half Aunt: Leukemia SocHx: Quit 15y ago. EtOH 1-2 once a month. No drugs. [facility] Medical History (Updated 11/02/22 @ 10:48 by Yves Verma) Back pain Binge-eating disorder, in partial remission, moderate Daytime somnolence Equivocal stress test History of epidural anesthesia Irregular heart beat Migraines ANDREA (obstructive sleep apnea) Pre-op evaluation Seasonal allergies Steatosis, liver Vitamin A deficiency Vitamin D deficiency Surgical History (Updated 11/02/22 @ 10:25 by Agatha Freire CMA) H/O gastric sleeve History of wisdom tooth extraction Family History (Updated 11/02/22 @ 10:17 by Agatha Freire CMA) Mother Anemia Father No problems noted. 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 1. Little interest or pleasure in doing things: not at all 2. Feeling down, depressed, or hopeless: several days 3. Trouble falling or staying asleep, or sleeping too much: nearly every day 4. Feeling tired or having little energy: several days 5. Poor appetite or overeating: not at all 6. Feeling bad about yourself - or that you are a failure or have let yourself or your family down: not at all 7. Trouble concentrating on things, such as reading the newspaper or watching television: not at all 8. Moving or speaking so slowly that other people could have noticed. Or the opposite - being so fidgety or restless that you have been moving around a lot more than usual: not at all 9. Thoughts that you would be better off or of hurting yourself in some way: not at all Total score: 5 Source: Developed by Drs. Jimy Beck, Lise Cheung, Peng Barrett and colleagues, with an educational rubin from [employer]. Thrive Questionnaire I am a: Patient What is your living situation today?: I have a steady place to live Within the past 12 months, did the food you bought not last and you didn't have the money to get more?: Sometimes True Within the past 12 months, did you worry whether your food would run out before you got money to buy more?: Sometimes True Do you have trouble paying for medicines?: No Do you have trouble getting transportation to medical appointments?: No Do you have trouble paying your heating and electricity bill?: Yes Do you have trouble taking care of your child, family member or friend?: No Do you have trouble with day-to-day activities such as bathing, preparing meals, shopping, managing finances, etc.?: No Are you currently unemployed and looking for a job?: No Are you interested in more education?: No AUDIT C Alcohol Use Questionnaire (AUDIT-C) 1. How often do you have a drink containing alcohol?: Monthly or less 2. How many drinks containing alcohol do you have on a typical day when you are drinking?: 1 or 2 3. How often do you have six or more drinks on one occasion?: Never Total Score: 1 JUAREZ-7 AMB Questionnaire JUAREZ-7 Feeling nervous, anxious, or on edge: 1 = Several days Not being able to stop or control worryin = Several days Worrying too much about different things: 1 = Several days Trouble relaxin = Several days Being so restless that it is hard to sit still: 0 = Not at all Becoming easily annoyed or irritable: 0 = Not at all Feeling afraid as if something awful might happen: 0 = Not at all Total JUAREZ-7 score (0-4 normal; 5-9 mild; 10-14 moderate; 15-21 severe): 4 Source: Developed by Drs. Jimy Beck, Lise Cheung, Peng Barrett and colleagues, with an educational rubin from [employer]. Physical exam (Primary Care) Vital Signs: Last Vital Signs Pulse 57 11/02/22 10:11 BP 118/68 11/02/22 10:11 Pulse Ox 98 11/02/22 10:11 Oxygen Delivery Method Room Air 11/02/22 10:11 BMI result Body Mass Index 37.8 Tobacco/Smoking Status: Tobacco use Status Tobacco use date assessed 11/02/22 11/02/22 10:23 Patient Tobacco Use Status Former Tobacco user 11/02/22 10:23 Tobacco use type Cigarette 11/02/22 10:23 e-Cigarette/Vaping Use Never Used 11/02/22 10:23 PHQ-9: PHQ-9 Score PHQ-9: Total score 5 11/02/22 10:24 Const Nutritional Appearance: obese Extrem Other: Patellar crepitus and tenderness at joint space of her knees Normal range of motion Assessment and Plan Assessment & Plan (1) Bilateral knee pain: Code(s): M25.561 - Pain in right knee; M25.562 - Pain in left knee Plan: Bilateral knee pain with some history of arthritis. Also I suspect there is some patellar tendinitis. She has a history of gastric sleeve but this was over a year ago so can use some ibuprofen for a few days at a time when knees flare up. Also advised ice and heat and she can use Tylenol for milder pain Will check x-rays to evaluate arthritis or other underlying causes. I think that she will benefit from physical therapy which we will start after I see her x-rays if pain persists Will also likely benefit from steroid injections if pain persists. (2) Raynauds phenomenon: Code(s): I73.00 - Raynaud's syndrome without gangrene Plan: Likely Raynaud's phenomenon in hands this may be triggered by cold, exercise or anxiety Keep hands warm She will let me know if she is noticing any other triggers or if symptoms worsen (3) Amenorrhea: Code(s): N91.2 - Amenorrhea, unspecified Plan: Will refer to dietary director (4) Laboratory exam ordered as part of routine general medical examination: Code(s): Z00.00 - Encounter for general adult medical examination without abnormal findings Plan: Check labs (5) Knee pain, left: Code(s): M25.562 - Pain in left knee Plan: As above Orders: Orders Comprehensive [place]. Panel Fast Today Z00.00 - Encounter for general adult medical examination without abnormal findings CRP High Sensitivity Today M25.561 - Pain in right knee Lipid Panel Today Z00.00 - Encounter for general adult medical examination without abnormal findings TSH reflex Free T4 Today Z00.00 - Encounter for general adult medical examination without abnormal findings Microalbumin, Random (w Creat) Today I10 - Essential (primary) hypertension Complete Blood Count Auto Diff Today Z00.00 - Encounter for general adult medical examination without abnormal findings Erythrocyte Sedimentation Rate Today M25.561 - Pain in right knee UA and rflx microscopic Today Z00.00 - Encounter for general adult medical examination without abnormal findings XR knee LT 3V Today M25.562 - Pain in left knee XR knee RT 3V Today M25.561 - Pain in right knee Referrals TANNERY WORKER Referral N91.2 - Amenorrhea, unspecified Coding Level of Care Code Est Pt Level 4 (56948) Diagnoses Bilateral knee pain M25.561; M25.562 Raynauds phenomenon I73.00 Amenorrhea N91.2 Laboratory exam ordered as part of routine general medical examination Z00.00 Knee pain, left M25.568
[2022-11-02 10:11] VITALS: BP 118/68; PULSE 57; O2SAT 98; BMI 37.8
== END 2022-11-02 11:02 | disposition home or self-care (01) ==
PROVIDERS: Visit Provider Family Medicine
DX: M25.561 Pain in right knee (principal); M25.562 Pain in left knee; I73.00 Raynaud's syndrome without gangrene; N91.2 Amenorrhea, unspecified; Z00.00 Encounter for general adult medical examination without abnormal findings
CPT/HCPCS: 99214

== ENCOUNTER 2022-11-02 17:33 | Outpatient (AMB) | payer OTHER, MEDICAID, SELFPAY ==
--- NOTE | 2022-11-03 14:37 | A.OFFWM_ITS ---
Intake Intake Visit Reasons: group therapy Allergies avocado Allergy (Verified 11/02/22 10:14) Vomiting pineapple Allergy (Verified 11/02/22 10:14) Itching PFSH Medical History (Updated 11/02/22 @ 10:48 by Yves Verma) Back pain Binge-eating disorder, in partial remission, moderate Daytime somnolence Equivocal stress test History of epidural anesthesia Irregular heart beat Migraines ANDREA (obstructive sleep apnea) Pre-op evaluation Seasonal allergies Steatosis, liver Vitamin A deficiency Vitamin D deficiency Surgical History (Updated 11/02/22 @ 10:25 by Agatha Freire [facility]) H/O gastric sleeve History of wisdom tooth extraction Family History (Updated 11/02/22 @ 10:17 by Agatha Freire CMA) Mother Anemia Father No problems noted. 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 Discussed handout on [employer]. Patient shared her success and struggles with the group. Assessment & Plan Assessment & Plan (1) Binge-eating disorder, in partial remission, moderate: Code(s): F50.81 - Binge eating disorder (2) S/P laparoscopic sleeve gastrectomy: Code(s): Z98.84 - Bariatric surgery status Plan Pt would benefit from ongoing group therapy for support, development of appropriate coping skills, awareness of emotional eating and CBT. She is struggling post weight loss surgery with snacking and some emotional eating. Coding Level of Care Code Grp Psych (92555) Diagnoses Binge-eating disorder, in partial remission, moderate F50.81 S/P laparoscopic sleeve gastrectomy Z98.84 Time Spent (min) 60
== END 2022-11-03 14:37 | disposition home or self-care (01) ==
PROVIDERS: PCP Family Medicine; Visit Provider Counselor Mental Health
DX: F50.81 Binge eating disorder (principal); Z98.84 Bariatric surgery status

== ENCOUNTER → 2022-11-02 17:33 | Outpatient (BNVA) | payer OTHER, MEDICAID, SELFPAY | PROVIDERS: PCP Family Medicine; Visit Provider Counselor Mental Health | DX: F50.81 Binge eating disorder (principal); Z71.3 Dietary counseling and surveillance; Z98.84 Bariatric surgery status | CPT/HCPCS: 90853 ==

== ENCOUNTER → 2022-11-16 17:11 | Outpatient (BNVA) | payer OTHER, MEDICAID, SELFPAY | PROVIDERS: PCP Family Medicine; Visit Provider Counselor Mental Health ==

== ENCOUNTER 2022-12-21 19:05 | Outpatient (AMB) | payer OTHER, MEDICAID, SELFPAY ==
--- NOTE | 2022-12-28 15:07 | A.OFFWM_ITS ---
Intake Intake Visit Reasons: Group Therapy Allergies avocado Allergy (Verified 11/02/22 10:14) Vomiting pineapple Allergy (Verified 11/02/22 10:14) Itching PFSH Medical History (Updated 11/02/22 @ 10:48 by Yves Verma) Steatosis, liver History of epidural anesthesia ANDREA (obstructive sleep apnea) Seasonal allergies Migraines Vitamin A deficiency Vitamin D deficiency Equivocal stress test Binge-eating disorder, in partial remission, moderate Back pain Pre-op evaluation Daytime somnolence Irregular heart beat Surgical History (Updated 11/02/22 @ 10:25 by Agatha Freire [facility]) H/O gastric sleeve History of wisdom tooth extraction Family History (Updated 11/02/22 @ 10:17 by Agatha Freire CMA) Mother Anemia Father No problems noted. 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 Patient shared appropriately. Lizette denied any history of outpatient mental health treatment. She denied a history of any inpatient psychiatric admissions or substance use treatment/abuse/dependence. Presenting Concerns Referral Source provider Reason for referral post weight loss surgery Precipitating Event ongoing struggles with emotional eating Living Situation Current Living Situation Own At risk of losing current housing? No Satisfied with current living situation? Yes Comments She lives with her and children ages 16, and 19 years old. Food/Weight/Diet Expectations of change Lizette stated that she would like to be around for her children and improve her quality of life. History/Relationship with food In the past, she stated that food made her feel good. The stuff that she likes she would always want more of it. She would eat pork, rice, pasta, potatoes, zuluaga, bread, fast food, soda, and sweets. History/Relationship with weight Lizette stated that she was a healthy weight until she retired from the at age 24. As a child though she was called the chubby one, bigger girl . History/Relationship with dieting She has tried WW, Whole 30, cutting calories. She lost the most 30lbs doing WW. Binge Eating Do you frequently eat large amounts of food in short periods of time, not feeling physically hungry? No Do you feel out of control when you eat a large amount of food in a short period of time? No Do you eat large amounts of food rapidly and typically alone? No Night Eating Do you wake up at least once during the night to eat? No If you wake up in the night, do you find that it is necessary to eat something in order to fall back asleep? No Do you have little or no appetite in the morning and feel very hungry in the evening, often overeating between dinner and when you go to bed? No Social History Family history and relationship Individual was born in and moved to the [facility] when she was 10 years old. She was raised by her father and stepmother, her father then left with her and her sister to move her and leave his . He then remarried. Her sister last year at age 36. She had compli cations during gastric sleeve surgery and was then in a nursing facility for ten years. Lizette stated that she was just started to build a relationship with her before her sister had surgery. She has the same mother and father as her older sister and they live in [place]. She has 5 other half siblings. Lizette has been for 17 years to her . Social support Community support involved in her kids sports Legal Involvement and History Current or historical involvement with the legal system? none Education Highest grade completed some college Preferred learning style Auditory, Verbal, Written, Learn by doing and Visual Currently enrolled in educational program? Yes Interested in further educational program? 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 Employment Employment Status [employer] Financial Situation Describe current financial situation Occasional struggle Financial assistance? None Service Service? Yes Mental Health and Addiction Treatment Current/Past substance abuse? No Current/Past addictive behavior concerns? No Pain Screening Current pain? Yes Pain in the last few months? Yes Medications Is the patient compliant with medications? Yes Does the patient have Galvin Guardian in place? Yes Does the patient use complimentary health approaches? Yes Assessment & Plan Assessment & Plan (1) Binge-eating disorder, in partial remission, moderate: Code(s): F50.81 - Binge eating disorder (2) S/P laparoscopic sleeve gastrectomy: Code(s): Z98.84 - Bariatric surgery status Plan Pt would benefit from ongoing group therapy for support, development of appropriate coping skills, awareness of emotional eating and CBT. She is struggling post weight loss surgery with snacking and some emotional eating. Coding Level of Care Code Grp Psych (31643) Diagnoses Binge-eating disorder, in partial remission, moderate F50.81 S/P laparoscopic sleeve gastrectomy Z98.84 Time Spent (min) 60
== END 2022-12-23 09:57 | disposition home or self-care (01) ==
PROVIDERS: PCP Family Medicine; Visit Provider Counselor Mental Health
DX: F50.81 Binge eating disorder (principal); Z98.84 Bariatric surgery status

== ENCOUNTER → 2022-12-21 19:05 | Outpatient (BNVA) | payer OTHER, MEDICAID, SELFPAY | PROVIDERS: PCP Family Medicine; Visit Provider Counselor Mental Health | DX: F50.81 Binge eating disorder (principal); Z90.3 Acquired absence of stomach [part of] | CPT/HCPCS: 90853 ==

== ENCOUNTER 2023-01-05 08:32 | Outpatient (REF) | payer OTHER, MEDICAID, SELFPAY ==
--- NOTE | ~2023-01-05 | XR_ITS ---
EXAMINATION: XR KNEE, RIGHT XR KNEE, LEFT CLINICAL INFORMATION: Right and left knee pain. COMPARISON: None. TECHNIQUE: AP, oblique, and sunrise views of the right left knee. FINDINGS: Right Knee: Mild tricompartmental joint space narrowing with prominent marginal osteophytes. No osseous erosion. No fracture or dislocation. Superior patellar enthesophytes. No significant joint effusion. Left Knee: Mild tricompartmental joint space narrowing with prominent marginal osteophytes. No osseous erosion. No fracture or dislocation. Superior patellar enthesophytes. Trace joint effusion. XR/XR knee LT 3V IMPRESSION: RIGHT KNEE: Moderate tricompartmental osteoarthritis. LEFT KNEE: Moderate tricompartmental osteoarthritis. Trace joint effusion.
--- NOTE | ~2023-01-05 | XR_ITS ---
EXAMINATION: XR KNEE, RIGHT XR KNEE, LEFT CLINICAL INFORMATION: Right and left knee pain. COMPARISON: None. TECHNIQUE: AP, oblique, and sunrise views of the right left knee. FINDINGS: Right Knee: Mild tricompartmental joint space narrowing with prominent marginal osteophytes. No osseous erosion. No fracture or dislocation. Superior patellar enthesophytes. No significant joint effusion. Left Knee: Mild tricompartmental joint space narrowing with prominent marginal osteophytes. No osseous erosion. No fracture or dislocation. Superior patellar enthesophytes. Trace joint effusion. XR/XR knee RT 3V IMPRESSION: RIGHT KNEE: Moderate tricompartmental osteoarthritis. LEFT KNEE: Moderate tricompartmental osteoarthritis. Trace joint effusion.
[2023-01-05 08:49] LABS: MANUAL DIFF FLAG NO
[2023-01-05 09:13] LABS: Basophils Percent Auto 0.9 % (0-2); Eosinophils Absolute Auto 0.3 X10*3/uL (0.0-0.4); Eosinophils Percent Auto 6.3 % (0-4); Hematocrit 39.2 % (37.0-47.0); Hemoglobin 12.4 g/dl (12.0-16.0); Imm Gran Abs Auto 0.01 X10*3/uL (0.00-0.03); Imm Gran Pct Auto 0.2 % (0.0-0.4); Lymphocytes Absolute Auto 2.5 X10*3/uL (1.2-4.9); Lymphocytes Percent Auto 52.9 % (20-40); Mean Corpuscular HGB Conc 31.6 g/dl (31.0-35.0); Mean Corpuscular Hemoglobin 26.4 pg (27.0-33.0); Mean Corpuscular Volume 83.6 fL (80.0-98.0); Mean Platelet Volume 9.9 fL (9.4-12.3); Monocytes Absolute Auto 0.4 X10*3/uL (0.1-1.2); Monocytes Percent Auto 7.6 % (2-11); Neutrophils Absolute Auto 1.5 x10*3/uL (2.0-8.3); Neutrophils Percent Auto 32.1 % (45-73); Platelet Count 245 X10*3/uL (160-400); Red Blood Count 4.69 X10*6/uL (4.20-5.50); Red Cell Distribution Width 13.2 % (11.0-16.0); White Blood Count 4.6 X10*3/uL (4.8-10.8)
[2023-01-05 09:51] LABS: Erythrocyte Sedimentation Rate 12 MM/HR (0-20)
[2023-01-05 09:56] LABS: Alanine Aminotransferase 21 U/L (0-31); Alkaline Phosphatase 63 U/L (39-117); Anion Gap 12 (12-20); Aspartate Amino Transferase 20 U/L (5-31); Bilirubin Total 0.4 mg/dL (0.0-1.0); Blood Urea Nitrogen 11 mg/dL (9-16); Calcium 9.4 mg/dL (8.4-10.2); Carbon Dioxide 29 mmol/L (22-29); Chloride 107 mmol/L (96-108); Cholesterol 233 mg/dL (<200); Estimated Glomerular Filt Rate > 60; Glucose Fasting 84 mg/dL (60-99); HDL Cholesterol 49 mg/dL (>40); LDL Cholesterol Calculated 173 mg/dL (<100); Potassium 3.8 mmol/L (3.3-5.1); Sodium 144 mmol/L (135-145); Total Protein 7.3 g/dL (6.5-8.0); Triglycerides 59 mg/dL (<150)
[2023-01-05 09:58] LABS: TSH reflex Free T4 1.04 uIU/mL (0.32-4.0)
[2023-01-05 10:13] LABS: Appearance Urine Clear; Color Urine Yellow; Glucose Urine UA Negative (Negative); Leukocyte Esterase Urine Negative (Negative); Nitrite Urine Negative (Negative); Urine Blood Negative (Negative); Urine Ketones Negative (Negative); Urine Protein Negative (Neg-Trace)
[2023-01-05 11:15] LABS: Creatinine Urine 202.76 mg/dL; Microalbum/Creatinine Ratio Ur 8.3 ug/mg cr (<30)
[2023-01-09 20:08] LABS: CRP High Sensitivity 1.5 mg/L
== END 2023-01-05 08:33 | disposition home or self-care (01) ==
LOC: HO.LAB 08:32
PROVIDERS: PCP Family Medicine; Visit Provider Family Medicine
DX: M17.0 Bilateral primary osteoarthritis of knee (principal); M25.561 Pain in right knee; M25.562 Pain in left knee; I10 Essential (primary) hypertension; Z00.00 Encounter for general adult medical examination without abnormal findings
CPT/HCPCS: 36415; 73562; 80053; 80061; 81003; 82043; 82570; 84443; 85025; 85652; 86141

== ENCOUNTER 2023-01-11 15:24 | Outpatient (AMB) | payer OTHER, MEDICAID, SELFPAY ==
[2023-01-11 15:26] VITALS: BP 126/80; PULSE 65; RESP 12; TEMP 36.5; O2SAT 99; BMI 39.1
--- NOTE | 2023-01-11 15:26 | MHC.PC.OV ---
Vital Signs 01/11/23 15:26 Height 5 ft 6 in Weight 242 lb BMI 39.1 BP 126/80 Blood Pressure Location Lt brachial Position Sitting Respiration 12 Pulse 65 Pulse Source Pulse Oximeter Temp 97.7 F Temp Source Temporal Artery Scan Pulse Oximetry (%) 99 Oxygen Delivery Method Room Air Intake Visit Reasons: Hip Pain Intake Note: Patient states that she has been having problems with her hips for years and she has been trying to treat pain with OTC meds but they haven't been working. Search Engineer Required: No Accompanied by: Self / Same As Patient Allergies avocado Allergy (Verified 01/11/23 15:37) Vomiting pineapple Allergy (Verified 01/11/23 15:37) Itching Medication List - Last Reconciled 01/11/23 by Reva Galicia CNP acetaminophen ER (Tylenol 8 Hour) 650 mg PO Q8H PRN Tobacco use date assessed: 11/02/22 Dental Screening Dental Screen Date: 01/11/23 Did you have a dental visit in the last 12 months?: Yes Did you have a dental problem in the last 6 months where you did not have access to dental care?: No Was dental information given to patient?: Patient has dentist HPI HPI Comments History of Present Illness Details 42-year-old female present with complaints of bilateral hip pain for the past 4 days. Her pain as been refractory to Ibuprofen. She describes the pain as sharp. She does not know if her pain is correlated to aerobic exercise she started 3 weeks ago. No tingling or numbness. No fall, injury, or trauma. She reports h/o intermittent bilat hip pain for the past 20 years; she states she was told her hips would dislocate and goes back in place; she reports h/o PT. [facility] Medical History Steatosis, liver History of epidural anesthesia ANDREA (obstructive sleep apnea) Seasonal allergies Migraines Vitamin A deficiency Vitamin D deficiency Equivocal stress test Binge-eating disorder, in partial remission, moderate Back pain Pre-op evaluation Daytime somnolence Irregular heart beat Surgical History H/O gastric sleeve History of wisdom tooth extraction Family History Mother Anemia Father No problems noted. 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 Cognitive needs: No Hearing needs: No Vision needs: Yes Review of Systems Const Details: Const Denies chills, Denies fatigue, Denies fever(s), Denies headache(s) and Denies weakness ENT Denies dizziness and Denies headache(s) Card Denies chest pain, Denies lightheadedness, Denies dyspnea and Denies other (Palpitations) Resp Denies cough, Denies dyspnea, Denies wheezing and Denies other ( shortness of breath) GI Denies abdominal pain, Denies melena, Denies hematochezia, Denies change in bowel habits, Denies dyspepsia and Denies nausea Denies hematuria and Denies dysuria Musc Reports as per HPI Skin/Breast Denies rash, Denies unusual bruising and Denies wounds Neuro Denies abnormal gait, Denies dizziness, Denies headache(s), Denies memory loss, Denies numbness, Denies Sensory deficit (Neuro), Denies tingling and Denies weakness Psych Denies anxiety, Denies depression, Denies memory loss Endo Denies cold intolerance, Denies fatigue, Denies heat intolerance, Denies polydipsia and Denies polyuria Aller/Immun Denies wheezing Physical exam (Primary Care) Vital Signs: Last Vital Signs Temp 97.7 F 01/11/23 15:26 Pulse 65 01/11/23 15:26 Resp 12 01/11/23 15:26 BP 126/80 01/11/23 15:26 Pulse Ox 99 01/11/23 15:26 Oxygen Delivery Method Room Air 01/11/23 15:26 BMI result Body Mass Index 39.1 Tobacco/Smoking Status: Tobacco use Status Tobacco use date assessed 11/02/22 01/11/23 15:34 Patient Tobacco Use Status Former Tobacco user 01/11/23 15:34 Tobacco use type Cigarette 01/11/23 15:34 e-Cigarette/Vaping Use Never Used 01/11/23 15:34 Const Other: General: no acute distress and well developed Nutritional Appearance: well nourished Orientation/consciousness: patient oriented x3 [facility] Head: Yes normocephalic and Yes atraumatic Eyes General: appearance normal, both eyes and all related structures Pupils: Equal, round and reactive pupils present EOM: EOMs intact bilaterally Resp Effort & Inspection: normal respiratory effort Auscultation: clear to auscultation bilaterally Cardio Rate: regular rate Rhythm: regular rhythm Heart sounds: S1 normal heart sound present, S2 normal heart sound present, no gallops, no murmurs and no rubs GI Palpation (GI): No Abdominal aortic bruit present, Soft to palpation, nontender, No hepatosplenomegaly present and No Rebound tenderness present Auscultation: normal bowel sounds General: Yes no CVA tenderness Back/Spine/Pelvis Back: no CVA tenderness Cervical Spine: cervical ROM normal and No Cervical spine tenderness Thoracic/Lumbar Spine: thoraco-lumbar ROM normal, No pain with thoraco-lumbar ROM, No thoracic spinal tenderness and No lumbar spinal tenderness Extrem General: Yes normal to inspection, No edema and No calf tenderness Tenderness to upper lateral hip bilaterally Negative straight leg raises bilaterally Skin General: warm and dry. Normal skin color. Normal skin turgor Lesions: no lesions Rashes: no rashes Trauma: no lacerations or abrasions Wounds: no wounds Nails: normal Neuro General: patient oriented x3, gait normal and no focal neuro deficit Cranial nerves: Yes Equal, round and reactive pupils present Cognition (Neuro): normal cognition Gait exam (Neuro): Normal gait present Sensory Exam: No Sensory deficit (Neuro) Psych Appearance: grossly normal Affect: normal affect Attitude: cooperative Thought process: Normal thought process present Assessment and Plan Assessment & Plan (1) Bilateral hip pain: Code(s): M25.551 - Pain in right hip; M25.552 - Pain in left hip Plan: She reports constant sharp bilateral lateral hip pain for the past 4 days. The pain is refractory to ibuprofen. She states she started doing aerobic exercise 3 weeks ago. Her symptoms may be attributed to strain or strain due to aerobic exercise. Arthritis is also possible Obesity may also be a cause as she may have significant weight on her hips She had blood work done recently and her CRP was negative Naproxen ordered. Take as prescribed X-ray ordered Warm/cool compresses encouraged Advised to avoid excessive exercise until fully healed Healthy dietary choices for weight reduction encouraged Follow-up with PCP as planned or return sooner with worsening or new symptoms Verbalized understanding and agreed with treatment plan. Orders: Orders XR hip BI w PEL1V Today M25.551 - Pain in right hip, M25.552 - Pain in left hip Medications: New naproxen 500 mg PO BID PRN 60 tabs 0RF pain Coding Level of Care Code Est Pt Level 2 (72589) Diagnoses Bilateral hip pain M25.551; M25.552
== END 2023-01-11 15:48 | disposition home or self-care (01) ==
PROVIDERS: PCP Family Medicine; Visit Provider Nurse Practitioner Family
DX: M25.551 Pain in right hip (principal); M25.552 Pain in left hip
CPT/HCPCS: 99212

== ENCOUNTER 2023-01-11 19:09 | Outpatient (AMB) | payer OTHER, MEDICAID, SELFPAY ==
--- NOTE | 2023-01-18 10:58 | A.OFFWM_ITS ---
Intake Intake Visit Reasons: Group Therapy Allergies avocado Allergy (Verified 01/11/23 15:37) Vomiting pineapple Allergy (Verified 01/11/23 15:37) Itching PFSH Medical History Steatosis, liver History of epidural anesthesia ANDREA (obstructive sleep apnea) Seasonal allergies Migraines Vitamin A deficiency Vitamin D deficiency Equivocal stress test Binge-eating disorder, in partial remission, moderate Back pain Pre-op evaluation Daytime somnolence Irregular heart beat Surgical History H/O gastric sleeve History of wisdom tooth extraction Family History Mother Anemia Father No problems noted. 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 Discussed somatic therapies and POV of the disordered eating as a symptom. Patient was enagaged and cooperative. Lizette denied any history of outpatient mental health treatment. She denied a history of any inpatient psychiatric admissions or substance use t reatment/abuse/dependence. Presenting Concerns Referral Source provider Reason for referral post weight loss surgery Precipitating Event ongoing struggles with emotional eating Living Situation Current Living Situation Own At risk of losing current housing? No Satisfied with current living situation? Yes Comments She lives with her and children ages 16, and 19 years old. Food/Weight/Diet Expectations of change Lizette stated that she would like to be around for her children and improve her quality of life. History/Relationship with food In the past, she stated that food made her feel good. The stuff that she likes she would always want more of it. She would eat pork, rice, pasta, potatoes, zuluaga, bread, fast food, soda, and sweets. History/Relationship with weight Lizette stated that she was a healthy weight until she retired from the at age 24. As a child though she was called the chubby one, bigger girl . History/Relationship with dieting She has tried WW, Whole 30, cutting calories. She lost the most 30lbs doing WW. Binge Eating Do you frequently eat large amounts of food in short periods of time, not feeling physically hungry? No Do you feel out of control when you eat a large amount of food in a short period of time? No Do you eat large amounts of food rapidly and typically alone? No Night Eating Do you wake up at least once during the night to eat? No If you wake up in the night, do you find that it is necessary to eat something in order to fall back asleep? No Do you have little or no appetite in the morning and feel very hungry in the evening, often overeating between dinner and when you go to bed? No Social History Family history and relationship Individual was born in and moved to the [facility] when she was 10 years old. She was raised by her father and stepmother, her father then left with her and her sister to move her and leave his . He then remarried. Her sister last year at age 36. She had complications during gastric sleeve surgery and was then in a nursing facility for ten years. Lizette stated that she was just started to build a relationship with her before her sister had surgery. She has the same mother and father as her older sister and they live in [place]. She has 5 other half siblings. Lizette has been for 17 years to her . Social support Community support involved in her kids sports Legal Involvement and History Current or historical involvement with the legal system? none Education Highest grade completed some college Preferred learning style Auditory, Verbal, Written, Learn by doing and Visual Currently enrolled in educational program? Yes Interested in further educational program? 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 None Service Service? Yes Mental Health and Addiction Treatment Current/Past substance abuse? No Current/Past addictive behavior concerns? No Pain Screening Current pain? Yes Pain in the last few months? Yes Medications Is the patient compliant with medications? Yes Does the patient have Galvin Guardian in place? Yes Does the patient use complimentary health approaches? Yes Assessment & Plan Assessment & Plan (1) Binge-eating disorder, in partial remission, moderate: Code(s): F50.81 - Binge eating disorder (2) S/P laparoscopic sleeve gastrectomy: Code(s): Z98.84 - Bariatric surgery status Plan Pt would benefit from ongoing group therapy for support, development of appropriate coping skills, awareness of emotional eating and CBT. She is struggling post weight loss surgery with snacking and some emotional eating. Coding Level of Care Code Grp Psych (03457) Diagnoses Binge-eating disorder, in partial remission, moderate F50.81 S/P laparoscopic sleeve gastrectomy Z98.84 Time Spent (min) 60
== END 2023-01-18 10:58 | disposition home or self-care (01) ==
PROVIDERS: PCP Family Medicine; Visit Provider Counselor Mental Health
DX: F50.81 Binge eating disorder (principal); Z98.84 Bariatric surgery status

== ENCOUNTER → 2023-01-11 19:09 | Outpatient (BNVA) | payer OTHER, MEDICAID, SELFPAY | PROVIDERS: PCP Family Medicine; Visit Provider Counselor Mental Health | DX: F50.81 Binge eating disorder (principal); Z98.84 Bariatric surgery status | CPT/HCPCS: 90853 ==

== ENCOUNTER 2023-01-17 16:24 | Outpatient (AMB) | payer OTHER, MEDICAID, SELFPAY ==
--- NOTE | 2023-01-17 16:03 | A.OFFVIS_ITS ---
Intake Intake Visit Reasons: VIDEO PO LSG 09/14/21 Allergies avocado Allergy (Verified 01/11/23 15:37) Vomiting pineapple Allergy (Verified 01/11/23 15:37) Itching HPI Nutrition Presentation Details G 09/14/21 Preop weight (09/07) 282# weight at 3 MO 244 weight 4 MO 236# weight 5MO PO 233# weight at 1 year PO 227# current weight at 17MO PO 238 Reason for consult elevated BMI Diet Assmnt Details Going to therapy groups with Edelmira. Reports she has been struggling with the desire to snack . Started tracking her food intake and has been helpful. Helped her realize she was eating a lot of calories in snacks . was also going to D&D before, getting high sugar, high calorie drinks coffee and premier protein powder bar fitcrunch lunch: protein and veg dinner: protein and veg Hydration: 64+oz water Vitamins: Celebrate MVI once daily Exercise: . 3x per week going to the gym. we also takled about extendign her walk to work to be at least a mile . Dietary counseling reduction Diagnosis Nutrition problem #1 overweight/obesity As related to (etiology) #1 excess energy intake and physical inactivity As evidenced by (sign/symptom) #1 high BMI Monitoring/Goals Nutrition problem monitoring total energy intake, level of knowledge/skill, total PRO intake, total CHO intake and weight Outcome progress progressing Learning/Education Readiness to learn good Stages of change action Most Recent Diabetes Results: Microalb/Creat Ratio 8.3 ug/mg cr (<30) 01/05/23 Cholesterol 233 mg/dL (<200) H 01/05/23 HDL Cholesterol 49 mg/dL (>40) 01/05/23 Triglycerides 59 mg/dL (<150) 01/05/23 Creatinine 0.73 mg/dL (0.5-1.4) 01/05/23 Blood Urea Nitrogen 11 mg/dL (9-16) 01/05/23 Sodium 144 mmol/L (135-145) 01/05/23 Potassium 3.8 mmol/L (3.3-5.1) 01/05/23 Chloride 107 mmol/L (96-108) 01/05/23 Carbon Dioxide 29 mmol/L (22-29) 01/05/23 Calcium 9.4 mg/dL (8.4-10.2) 01/05/23 AST 20 U/L (5-31) 01/05/23 ALT 21 U/L (0-31) 01/05/23 Total Protein 7.3 g/dL (6.5-8.0) 01/05/23 Albumin 4.0 g/dL (3.5-5.0) 01/05/23 PFSH Medical History Steatosis, liver History of epidural anesthesia ANDREA (obstructive sleep apnea) Seasonal allergies Migraines Vitamin A deficiency Vitamin D deficiency Equivocal stress test Binge-eating disorder, in partial remission, moderate Back pain Pre-op evaluation Daytime somnolence Irregular heart beat Surgical History H/O gastric sleeve History of wisdom tooth extraction Family History Mother Anemia Father No problems noted. 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 continue high protein diet, continue tracking and using other self monitoring tools. continue to seek support. she needs PA appt, then may resume f/u with me 1 month later Telehealth Telehealth Location of provider rendering services: practice address Location of patient: address on file Patient Identification confirmed using: Name, : Yes Telehealth method: video Patient verbally consented to treatment: Yes Patient verbally consented to billing insurance company: Yes Patient informed of any privacy concerns related to visit: Yes Minutes spent on Phone/Video with Pt.: 35 Coding Level of Care Code Nutr Indiv Subseq (79526) Diagnoses Obesity with body mass index (BMI) of 30.0 to 39.9 E66.9 Time Spent (min) 35
== END 2023-01-17 16:31 | disposition home or self-care (01) ==
LOC: HO.HBS 16:24
PROVIDERS: PCP Family Medicine; Visit Provider Dietitian, Registered
DX: E66.9 Obesity, unspecified (principal)

== ENCOUNTER → 2023-01-17 16:24 | Outpatient (BNVA) | payer OTHER, MEDICAID, SELFPAY | PROVIDERS: PCP Family Medicine; Visit Provider Dietitian, Registered | DX: E66.9 Obesity, unspecified (principal); Z98.84 Bariatric surgery status; Z71.3 Dietary counseling and surveillance | CPT/HCPCS: 97803 ==

== ENCOUNTER 2023-05-08 15:05 | Outpatient (REF) | payer OTHER, MEDICAID, SELFPAY ==
[2023-05-09 02:21] LABS: CT PCR NOT DETECTED (Not Detect.); NG PCR NOT DETECTED (Not Detect.)
[2023-05-09 12:30] LABS: BV Int Neg Control Negative (Negative); BV Int Pos Control Positive (Positive)
[2023-05-12 06:05] LABS: HPV mRNA E6/E7 rflx Not Detected (Not Detected)
== END 2023-05-08 15:06 | disposition home or self-care (01) ==
LOC: HO.LNP 15:05
PROVIDERS: PCP Family Medicine; Visit Provider Advanced Practice Midwife
DX: Z12.4 Encounter for screening for malignant neoplasm of cervix (principal); Z11.51 Encounter for screening for human papillomavirus (HPV); N92.1 Excessive and frequent menstruation with irregular cycle; E66.01 Morbid (severe) obesity due to excess calories; Z20.2 Contact with and (suspected) exposure to infections with a predominantly sexual mode of transmission
CPT/HCPCS: 0353U; 87480; 87510; 87624; 87660; 88142

== ENCOUNTER 2023-05-19 12:45 | Outpatient (REF) | payer OTHER, MEDICAID, SELFPAY ==
--- NOTE | ~2023-05-19 | US_ITS ---
EXAMINATION: US PELVIS CLINICAL INFORMATION: Amenorrhea. COMPARISON: None available. TECHNIQUE: Ultrasound of the pelvis is performed using both transabdominal and transvaginal transducers along with Doppler. Transvaginal imaging is performed due to inadequate visualization transabdominally. FINDINGS: Uterus: The uterus is anteverted and measures 6.9 x 2.6 x 4.2 cm. The double wall endometrial thickness is 0.2 cm. The uterus is smooth in contour and has normal myometrial echogenicity. No visible fibroid. Adnexa: The right ovary measures 4.1 x 4.5 x 2.7 cm, volume 26 mL. There is a 3.8 cm simple appearing cysts in the right adnexum. The left ovary measures 1.4 x 1.5 x 2.6 cm, volume 3 mL. No free fluid in the pelvis. US/US pelvic and transvaginal IMPRESSION: Endometrial stripe measures 0.2 cm in thickness. 3.8 cm simple paraovarian cyst in the right adnexum. No follow-up imaging recommended. Note: This recommendation does not apply to premenarchal patients and to those with increased risk (genetic, family history, elevated tumor markers or other high-risk factors) of ovarian cancer. Reference: Radiology 2010 Dec;256(3):943-54
== END 2023-05-19 12:46 | disposition home or self-care (01) ==
LOC: HO.US 12:45
PROVIDERS: PCP Family Medicine; Visit Provider Advanced Practice Midwife
DX: N91.2 Amenorrhea, unspecified (principal); E66.01 Morbid (severe) obesity due to excess calories
CPT/HCPCS: 76830; 76856

== ENCOUNTER 2023-05-30 15:22 | Outpatient (AMB) | payer OTHER, MEDICAID, SELFPAY ==
--- NOTE | 2023-05-30 15:53 | A.OFFPC_ITS ---
Vital Signs 05/30/23 15:54 Height 5 ft 6 in Weight 246 lb 6 oz BMI 39.8 BP 136/78 Blood Pressure Location Rt brachial Position Sitting Pulse 65 Pulse Source Pulse Oximeter Pulse Oximetry (%) 98 Oxygen Delivery Method Room Air Intake Visit Reasons: hip, leg pain Intake Note: Pt presents to the office today for c/o right hip and right leg pain that started about a week ago. Pt denies any known injury to her hip or leg.Pt states it is more painful when she is walking and standing. Allergies avocado Allergy (Verified 05/30/23 15:56) Vomiting pineapple Allergy (Verified 05/30/23 15:56) Itching Tobacco use date assessed: 05/10/23 HPI hip, leg pain HPI Details 42 y/o female presents today with compla ints of hip/leg pain. She notes hip pain that goes down to her leg. She describes pain as sharp. She denies any back pain. [facility] Medical History Steatosis, liver History of epidural anesthesia ANDREA (obstructive sleep apnea) Seasonal allergies Migraines Vitamin A deficiency Vitamin D deficiency Equivocal stress test Binge-eating disorder, in partial remission, moderate Back pain Pre-op evaluation Daytime somnolence Irregular heart beat Surgical History H/O gastric sleeve History of wisdom tooth extraction Family History Mother Anemia Father No problems noted. 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 Jimy Beck, Lise Cheung, Peng Barrett and colleagues, with an educational rubin from [employer]. Review of Systems Const Denies chills, Denies fatigue, Denies fever(s), Denies headache(s) and Denies weakness ENT Denies dizziness and Denies headache(s) Card Denies dyspnea Resp Denies cough, Denies dyspnea, Denies wheezing and Denies other (shortness of breath) Musc Details: R lateral hip pain R lateral thigh pain Denies numbness and Denies tingling Neuro Denies dizziness, Denies headache(s), Denies numbness, Denies tingling and Den ies weakness Psych Denies anxiety and Denies depression Endo Denies fatigue Aller/Immun Denies wheezing Physical exam (Primary Care) Vital Signs: Last Vital Signs Pulse 65 05/30/23 15:54 BP 136/78 05/30/23 15:54 Pulse Ox 98 05/30/23 15:54 Oxygen Delivery Method Room Air 05/30/23 15:54 BMI result Body Mass Index 39.8 Tobacco/Smoking Status: Tobacco use Status Tobacco use date assessed 05/10/23 05/30/23 15:54 Patient Tobacco Use Status Former Tobacco user 05/30/23 15:54 Tobacco use type Cigarette 05/30/23 15:54 e-Cigarette/Vaping Use Never Used 05/30/23 15:54 Thrive Assessment: Date of Thrive Assessment Date Thrive assessed 05/10/23 05/30/23 15:54 Const General: well developed; No acute distress Nutritional Appearance: well nourished Orientation/consciousness: patient oriented x3 [facility]EN[facility] Head: Yes normocephalic and Yes atraumatic Eyes General: appearance normal, both eyes and all related structures Pupils: Equal, round and reactive pupils present EOM: EOMs intact bilaterally Resp Effort & Inspection: normal respiratory effort Neuro General: patient oriented x3 and gait normal Cranial nerves: Yes Equal, round and reactive pupils present Psych Affect: normal affect Assessment and Plan Assessment & Plan (1) Hip pain: Code(s): M25.559 - Pain in unspecified hip Plan: Right?lateral?hip?and?right?lateral?thigh?pain Check?x-ray Trial?meloxicam Ice/heat Physical?therapy If?not?improving?or?if?indicated?by?x-ray?will?refer?to?ortho (2) Leg pain: Code(s): M79.606 - Pain in leg, unspecified Plan: As?above Orders: Orders PT Evaluation and Treatment Today M25.559 - Pain in unspecified hip, M79.606 - Pain in leg, unspecified XR hip RT min 2V Today M25.559 - Pain in unspecified hip Medications: New meloxicam 15 mg PO DAILY 30 tabs 2RF 30 days M25.559 - Pain in unspecified hip Coding Level of Care Code Est Pt Level 3 (69466) Diagnoses Hip pain M25.559 Leg pain M79.606
[2023-05-30 15:54] VITALS: BP 136/78; PULSE 65; O2SAT 98; BMI 39.8
== END 2023-05-30 16:06 | disposition home or self-care (01) ==
PROVIDERS: PCP Family Medicine; Visit Provider Family Medicine
DX: M25.559 Pain in unspecified hip (principal); M79.606 Pain in leg, unspecified
CPT/HCPCS: 99213

== ENCOUNTER 2023-05-30 16:35 | Outpatient (REF) | payer OTHER, MEDICAID, SELFPAY ==
--- NOTE | ~2023-05-30 | XR_ITS ---
EXAMINATION: XR HIP, RIGHT CLINICAL INFORMATION: Pain in unspecified hip. COMPARISON: None available. TECHNIQUE: Two views of the right hip. FINDINGS: Mild degenerative changes with joint space narrowing and hypertrophic change right hip. Alignment preserved. XR/XR hip RT min 2V IMPRESSION: 1. Mild degenerative changes right hip. 2. MRI should be considered for further evaluation if there is clinical concern for fracture or other underlying pathology.
[2023-05-30 19:03] LABS: Alanine Aminotransferase 19 U/L (0-31); Alkaline Phosphatase 80 U/L (39-117); Anion Gap 10 (12-20); Aspartate Amino Transferase 17 U/L (5-31); Bilirubin Total 0.2 mg/dL (0.0-1.0); Blood Urea Nitrogen 16 mg/dL (9-16); Calcium 9.3 mg/dL (8.4-10.2); Carbon Dioxide 29 mmol/L (22-29); Chloride 107 mmol/L (96-108); Cholesterol 233 mg/dL (<200); Estimated Glomerular Filt Rate > 60; Glucose Fasting 85 mg/dL (60-99); HDL Cholesterol 46 mg/dL (>40); LDL Cholesterol Calculated 159 mg/dL (<100); Potassium 3.4 mmol/L (3.3-5.1); Sodium 143 mmol/L (135-145); Total Protein 7.3 g/dL (6.5-8.0); Triglycerides 143 mg/dL (<150)
[2023-05-30 19:18] LABS: Thyroid Stimulating Hormone 0.77 uIU/mL (0.32-4.0)
[2023-06-01 08:04] LABS: DHEA Sulfate 125 mcg/dL (15-205); Prolactin 3.7 ng/mL
== END 2023-05-30 16:36 | disposition home or self-care (01) ==
LOC: HO.XRAY 16:35
PROVIDERS: Absent Provider Advanced Practice Midwife; PCP Family Medicine; Visit Provider Family Medicine
DX: M25.551 Pain in right hip (principal); N91.2 Amenorrhea, unspecified; E78.00 Pure hypercholesterolemia, unspecified; Z00.00 Encounter for general adult medical examination without abnormal findings
CPT/HCPCS: 36415; 73502; 80053; 80061; 82627; 83001; 84146; 84402; 84403; 84443

== ENCOUNTER 2023-06-02 15:19 | Outpatient (AMB) | payer OTHER, MEDICAID, SELFPAY ==
--- NOTE | 2023-06-02 15:20 | A.OFFVIS_ITS ---
Intake Intake Visit Reasons: TV/Ultrasound Results Imager Required: No Allergies avocado Allergy (Verified 06/02/23 15:20) Vomiting pineapple Allergy (Verified 06/02/23 15:20) Itching Medication List - Last Reconciled 06/02/23 by Tiffanie Gimenez CNM acetaminophen ER (Tylenol 8 Hour) 650 mg PO Q8H PRN meloxicam 15 mg PO DAILY 30 days Post menopausal: No HPI TV/Ultrasound Results HPI Details This is a tele visit to review patient's ultrasound results PFSH Medical History Steatosis, liver History of epidural anesthesia ANDREA (obstructive sleep apnea) Seasonal allergies Migraines Vitamin A deficiency Vitamin D deficiency Equivocal stress test Binge-eating disorder, in partial remission, moderate Back pain Pre-op evaluation Daytime somnolence Irregular heart beat Surgical History H/O gastric sleeve History of wisdom tooth extraction Family History Mother Anemia Father No problems noted. 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 Attending Dr: Tiffanie T Gaston CNM Ordering Physician: Tiffanie Gimenez CNM Date of Service: 05/19/23 Procedure(s): US pelvic and transvaginal Accession Number(s): [id number] cc: Malachi Atkins MD; Tiffanie Gimenez CNM~ EXAMINATION: US PELVIS CLINICAL INFORMATION: Amenorrhea. COMPARISON: None available. TECHNIQUE: Ultrasound of the pelvis is performed using both transabdominal and transvaginal transducers along with Doppler. Transvaginal imaging is performed due to inadequate visualization transabdominally. FINDINGS: Uterus: The uterus is anteverted and measures 6.9 x 2.6 x 4.2 cm. The double wall endometrial thickness is 0.2 cm. The uterus is smooth in contour and has normal myometrial echogenicity. No visible fibroid. Adnexa: The right ovary measures 4.1 x 4.5 x 2.7 cm, volume 26 mL. There is a 3.8 cm simple appearing cysts in the right adnexum. The left ovary measures 1.4 x 1.5 x 2.6 cm, volume 3 mL. No free fluid in the pelvis. US/US pelvic and transvaginal IMPRESSION: Endometrial stripe measures 0.2 cm in thickness. 3.8 cm simple paraovarian cyst in the right adnexum. No follow-up imaging recommended. Note: This recommendation does not apply to premenarchal patients and to those with increased risk (genetic, family history, elevated tumor markers or other high-risk factors) of ovarian cancer. 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: ISMAEL Patient went to the lab on 05/30/2023 and got lab work done however the labs that I ordered were canceled somehow by the lab the only labs that were done with the labs ordered by her primary care provider, Assessment & Plan Assessment & Plan (1) Amenorrhea: Code(s): N91.2 - Amenorrhea, unspecified (2) Perimenopause: Code(s): N95.1 - Menopausal and female climacteric states Plan I reviewed the ultrasound in detail and also the possibility of PCOS versus early menopause versus other issues that had been raised in the visit before as regards her infrequent periods in the last couple of years coupled with increa sed weight gain and increased facial hair. She went to the lab on 05/30 however they did not do the labs I ordered they only did her primary care providers labs. The ultrasound was reviewed in detail with her there has no follow-up necessary for the paraovarian cyst and there was no thickening of the endometrial lining which was good but neither were there any markers for PCOS. The patient will probably go to the lab some other time and try to get the cancel labs done. If she does go for them I recommend that she schedule a tele visit to review them with me. Telehealth Telehealth Location of provider rendering services: practice address Location of patient: address on file Patient Identification confirmed using: Name, : Yes Telehealth method: voice only Patient verbally consented to treatment: Yes Patient verbally consented to billing insurance company: Yes Patient informed of any privacy concerns related to visit: Yes Coding Level of Care Code Tele Est Pt Level 3 (71840) Diagnoses Amenorrhea N91.2 Perimenopause N95.1 Time Spent (min) 25 Comment 2m cr/17 video w pt/6 charting=25
== END 2023-06-02 16:20 | disposition home or self-care (01) ==
LOC: HO.HWSM 15:19
PROVIDERS: PCP Family Medicine; Visit Provider Advanced Practice Midwife
DX: N91.2 Amenorrhea, unspecified (principal); N95.1 Menopausal and female climacteric states
CPT/HCPCS: 98968; 99443

== ENCOUNTER → 2023-06-02 15:19 | Outpatient (BNVA) | payer OTHER, MEDICAID, SELFPAY | PROVIDERS: PCP Family Medicine; Visit Provider Advanced Practice Midwife ==

== ENCOUNTER 2023-06-19 14:57 | Outpatient (REF) | payer OTHER, MEDICAID, SELFPAY ==
[2023-06-21 08:13] LABS: Follicle Stimulating Hormone 9.9 mIU/mL
== END 2023-06-19 14:58 | disposition home or self-care (01) ==
LOC: HO.LAB 14:57
PROVIDERS: PCP Family Medicine; Visit Provider Advanced Practice Midwife
DX: N91.2 Amenorrhea, unspecified (principal)
CPT/HCPCS: 36415; 83001; 84402; 84403

== ENCOUNTER 2023-07-17 15:07 | Outpatient (REF) | payer OTHER, SELFPAY ==
[2023-07-21 19:03] LABS: Testosterone, Free 3.3 pg/mL (0.1-6.4); Testosterone, Total 25 ng/dL (2-45)
== END 2023-07-17 15:08 | disposition home or self-care (01) ==
LOC: HO.LAB 15:07
PROVIDERS: PCP Family Medicine; Visit Provider Advanced Practice Midwife
DX: N92.6 Irregular menstruation, unspecified (principal)
CPT/HCPCS: 36415; 84402; 84403

== ENCOUNTER 2025-03-20 07:06 | Outpatient (AMB) | payer OTHER, SELFPAY ==
--- OUTSIDE RECORDS SUMMARY | 2025-03-20 07:09 | XMS_ITS ---
Author Name [facility] [[email or web address]]P Organization Unknown Care Team Organization Name Specialty Phone Email Start Date End Da te [facility] RYAN BEGUM Primary Care 02/22/2022 12/04/19 24
[2025-03-20 07:11] VITALS: BP 122/78; PULSE 64; O2SAT 96; BMI 37.1
--- NOTE | 2025-03-20 07:11 | MHC.OFFWIV ---
Intake Vital Signs 03/20/25 07:11 Height 5 ft 6 in Weight 230 lb BMI 37.1 BP 122/78 Blood Pressure Location Lt brachial Position Sitting Pulse 64 Pulse Source Pulse Oximeter Pulse Oximetry (%) 96 Oxygen Delivery Method Room Air Intake Visit Reasons: EP left knee pain swollen Intake Note: Patient presents c/o left knee pain/swelling since yesterday. Sometimes feels like it radiates down into calf. Patient denies injury. Patient Tobacco Use Status: Former Tobacco user Allergies avocado Allergy (Verified 03/20/25 07:13) Vomiting pineapple Allergy (Verified 03/20/25 07:13) Itching Medication List - Last Reconciled 03/20/25 by Anastasiya Ruiz NP amlodipine 10 mg PO DAILY atomoxetine 40 mg PO DAILY atorvastatin 40 mg PO DAILY losartan 50 mg PO QAM tirzepatide (weight loss) (Zepbound) 5 mg subcut QWEEK Do you need a note to return to daycare/school/sports/work: No HPI HPI Comments History of Present Illness Details 44-year-old female presents to the walk-in clinic with c/o left knee pain since yesterday. Pain started suddenly when getting up from a sitting position; describes it as a sharp pain radiating down to the lower leg. She has not taken any pain-relief medications, stating she was unsure what was safe without instruction. Denies injury, fall, trauma, or prior knee surgeries. Reports known history of moderate Tri-compartmental osteoarthritis in both knees. She is willing to try physical therapy. Last imaging: Bilateral knee X-ray 12/2022 showing moderate OA. [facility], [facility] Medical History (Updated 03/20/25 @ 07:46 by Anastasiya Ruiz NP) Tricompartment osteoarthritis of both knees Steatosis, liver History of epidural anesthesia ANDREA (obstructive sleep apnea) Seasonal allergies Migraines Vitamin A deficiency Vitamin D deficiency Equivocal stress test Binge-eating disorder, in partial remission, moderate Back pain Pre-op evaluation Daytime somnolence Irregular heart beat Surgical History H/O gastric sleeve History of wisdom tooth extraction Family History Mother Anemia Father No problems noted. 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 General: patient oriented x3, gait normal and moves all extremities Extrem Other: LEFT/RIGHT KNEES: Inspection: No visible deformity, swelling noted. Palpation: TTP over joint line and Patellar ROM: Limited with flexion/extension due to pain Negative drawer/Astrid/varus?valgus instability. Right lower extremity: knee Details: crepitus Location: at the patella; no swelling and no deformity Left lower extremity: knee Details: crepitus Location: at the patella Psych Speech and movement: Normal speech and movement present Assessment & Plan Assessment & Plan (1) Tricompartment osteoarthritis of both knees: Code(s): M17.0 - Bilateral primary osteoarthritis of knee Plan: Acute exacerbation of both Knees Pain ? likely flare of underlying osteoarthritis vs strain from positional change. Known Bilateral Moderate Tri-compartmental Osteoarthritis (confirmed by imaging 12/2022). Activity-related knee pain, no red-flag symptoms, no evidence of traumatic injury. Recommend NSAID and Acetaminophen for pain relief. Provided Knee Brace Left Knee. PT referral for strengthening, mobility work, gait training ? patient agreeable. Referral Placed. Ice 15?20 min TID for 48?72 hours, then switch to heat PRN. Activity modification: Avoid deep bending, limit prolonged weight-bearing. Orders: Orders PT Evaluation and Treatment Today M17.0 - Bilateral primary osteoarthritis of knee Coding Level of Care Code Est Pt Level 4 (69827) Diagnoses Tricompartment osteoarthritis of both knees M17.0 Time Spent (min) 20
== END 2025-03-20 08:17 | disposition home or self-care (01) ==
PROVIDERS: PCP Family Medicine; Visit Provider Nurse Practitioner Family
DX: M17.0 Bilateral primary osteoarthritis of knee (principal)